=== PATIENT | male | born 1955 | race Caucasian/White ===

== ENCOUNTER → 2017-08-24 11:17 | Outpatient (CLI) | payer OTHER, MEDICAID, SELFPAY ==
[2017-08-24 12:06] LABS: Add Manual Diff / Slide Review NO; Basophils Percent Auto 0.5 % (0-2); Eosinophils Percent Auto 1.3 % (2-4); Hematocrit 46.5 % (41-53); Hemoglobin 15.9 g/dL (13.5-17.5); Lymphocytes Percent Auto 25.8 % (25-40); Mean Corpuscular HGB Conc 34.1 % (30-36); Mean Corpuscular Hemoglobin 32.8 PG (26-34); Neutrophils Absolute Auto 4300 /uL (3000-5900); Neutrophils Percent Auto 63.4 % (50-75); Platelet Count 260 X10^3/uL (150-400); Red Blood Cell Count 4.85 X10^6/uL (4.5-5.9); Red Cell Distribution Width 13.1 % (11.6-14.8); White Blood Cell Count 6.7 X10^3/uL (4.5-11.0)
[2017-08-24 12:11] LABS: Hemoglobin A1C% w Est Avg Glu 7.5 % (4.0-6.0)
[2017-08-24 12:20] LABS: Alanine Aminotransferase 26 IU/L (21-72); Albumin 4.5 g/dL (3.5-5.0); Albumin Globulin Ratio 1.4 (1.0-2.8); Alkaline Phosphatase 43 U/L (38-126); Aspartate Aminotransferase 20 IU/L (17-59); Bilirubin Total 0.7 mg/dL (0.2-1.3); Blood Urea Nitrogen 16 mg/dL (9-20); Carbon Dioxide 27 mmol/L (22-32); Chloride 102 mmol/L (98-107); Estimated Glomerular Filt Rate > 60.0 mL/min (>60); Globulin 3.3 g/dL (1.7-4.1); Glucose 143 mg/dL (80-110); HEMOLYSIS 18 (0-50); Sodium 142 mmol/L (137-145); Total Protein 7.8 g/dL (6.3-8.2)
[2017-08-24 12:21] LABS: Potassium 5.5 mmol/L (3.4-5.1)
[2017-08-24 13:51] LABS: Creatinine Urine Random 178.4 mg/dL
[2017-08-24 13:55] LABS: Microalbumi Creatinin Ratio Ur 20.1 ug/mg CR (<30); Microalbumin Urine Random 3.6 mg/dL (0-1.6)
== END ==
PROVIDERS: Family Provider Internal Medicine Cardiovascular Disease; PCP Internal Medicine; Visit Provider Internal Medicine Cardiovascular Disease
DX: E11.9 Type 2 diabetes mellitus without complications (principal); Z51.81 Encounter for therapeutic drug level monitoring; Z79.899 Other long term (current) drug therapy
CPT/HCPCS: 36415; 80053; 82043; 82570; 83036; 85025

== ENCOUNTER → 2018-04-21 10:51 | Outpatient (CLI) | payer MEDICARE, OTHER, SELFPAY ==
[2018-04-21 11:37] LABS: Blood Urea Nitrogen 14 mg/dL (9-20); Calcium 9.6 mg/dL (8.4-10.2); Carbon Dioxide 29 mmol/L (22-32); Chloride 99 mmol/L (98-107); Estimated Glomerular Filt Rate > 60.0 mL/min (>60); Glucose 315 mg/dL (80-110); HEMOLYSIS 16 (0-50); Potassium 5.3 mmol/L (3.4-5.1); Sodium 137 mmol/L (137-145)
== END ==
PROVIDERS: Family Provider Internal Medicine Cardiovascular Disease; PCP Internal Medicine; Visit Provider Internal Medicine Cardiovascular Disease
DX: Z51.81 Encounter for therapeutic drug level monitoring (principal); Z79.899 Other long term (current) drug therapy
CPT/HCPCS: 36415; 80048

== ENCOUNTER → 2018-09-22 14:45 | Outpatient (CLI) | payer MEDICARE, OTHER, SELFPAY ==
[2018-09-22 15:54] LABS: BUN Creatinine Ratio 18.2 (6-22); Blood Urea Nitrogen 20 mg/dL (9-20); Carbon Dioxide 25 mmol/L (22-32); Chloride 101 mmol/L (98-107); Estimated Glomerular Filt Rate > 60.0 mL/min (>60); Glucose 225 mg/dL (80-110); HEMOLYSIS < 15 (0-50); Potassium 4.8 mmol/L (3.4-5.1); Sodium 137 mmol/L (137-145)
== END ==
PROVIDERS: PCP Internal Medicine; Visit Provider Internal Medicine Cardiovascular Disease
DX: Z51.81 Encounter for therapeutic drug level monitoring (principal); Z79.899 Other long term (current) drug therapy
CPT/HCPCS: 36415; 80048

== ENCOUNTER → 2019-01-25 11:48 | Outpatient (CLI) | payer MEDICARE, OTHER, SELFPAY ==
[2019-01-25 12:57] LABS: BUN Creatinine Ratio 11.7 (6-22); Blood Urea Nitrogen 14 mg/dL (9-20); Calcium 10.2 mg/dL (8.4-10.2); Carbon Dioxide 28 mmol/L (22-32); Chloride 101 mmol/L (98-107); Estimated Glomerular Filt Rate > 60.0 mL/min (>60); Glucose 165 mg/dL (80-110); HEMOLYSIS < 15 (0-50); Potassium 5.2 mmol/L (3.4-5.1); Sodium 139 mmol/L (137-145)
== END ==
PROVIDERS: Family Provider Internal Medicine; PCP Internal Medicine; Visit Provider Internal Medicine Cardiovascular Disease
DX: Z51.81 Encounter for therapeutic drug level monitoring (principal); Z79.899 Other long term (current) drug therapy
CPT/HCPCS: 36415; 80048

== ENCOUNTER → 2019-07-19 13:55 | Outpatient (CLI) | payer MEDICARE, OTHER, SELFPAY ==
[2019-07-19 14:45] LABS: Hemoglobin A1C% w Est Avg Glu 9.2 % (4.0-6.0)
[2019-07-19 15:09] LABS: Alanine Aminotransferase 17 IU/L (<50); Albumin 4.4 g/dL (3.5-5.0); Albumin Globulin Ratio 1.4 (1.0-2.8); Alkaline Phosphatase 53 U/L (38-126); Aspartate Aminotransferase 19 IU/L (17-59); BUN Creatinine Ratio 13.4 (6-22); Bilirubin Total 0.8 mg/dL (0.2-1.3); Blood Urea Nitrogen 17 mg/dL (9-20); Carbon Dioxide 19 mmol/L (22-32); Chloride 103 mmol/L (98-107); Cholesterol 220 mg/dL (140-199); Estimated Glomerular Filt Rate 56.7 mL/min (>60); Globulin 3.2 g/dL (1.7-4.1); Glucose 214 mg/dL (80-110); HDL Cholesterol 41 mg/dL (40-60); HEMOLYSIS < 15 (0-50); LDL Cholesterol Calculated 148 mg/dL (<100); Potassium 4.4 mmol/L (3.4-5.1); Sodium 136 mmol/L (137-145); Total Protein 7.6 g/dL (6.3-8.2); Triglycerides 154 mg/dL (35-150)
[2019-07-19 15:38] LABS: Prostate Specific Antigen 1.59 ng/mL (0.10-4.00)
== END ==
PROVIDERS: Family Provider Internal Medicine; PCP Internal Medicine; Referring Provider Internal Medicine; Visit Provider Internal Medicine Cardiovascular Disease
DX: I48.91 Unspecified atrial fibrillation (principal); E11.9 Type 2 diabetes mellitus without complications; E78.5 Hyperlipidemia, unspecified; I42.9 Cardiomyopathy, unspecified; I48.0 Paroxysmal atrial fibrillation; R97.20 Elevated prostate specific antigen [PSA]
CPT/HCPCS: 36415; 80053; 80061; 83036; 84153

== ENCOUNTER → 2019-12-02 10:01 | Outpatient (CLI) | payer MEDICARE, OTHER, SELFPAY ==
[2019-12-02 10:37] LABS: BUN Creatinine Ratio 11.6 (6-22); Blood Urea Nitrogen 14 mg/dL (9-20); Calcium 9.5 mg/dL (8.4-10.2); Carbon Dioxide 23 mmol/L (22-32); Chloride 104 mmol/L (98-107); Glucose 162 mg/dL (80-110); HEMOLYSIS < 15 (0-50); Hemoglobin A1C% w Est Avg Glu 7.4 % (4.0-6.0); Potassium 4.2 mmol/L (3.4-5.1); Sodium 138 mmol/L (137-145)
== END ==
PROVIDERS: Family Provider Internal Medicine; PCP Internal Medicine; Referring Provider Internal Medicine; Visit Provider Internal Medicine
DX: E11.65 Type 2 diabetes mellitus with hyperglycemia (principal)
CPT/HCPCS: 36415; 80048; 83036

== ENCOUNTER 2020-03-19 00:10 | Emergency (ER) | payer MEDICARE, OTHER, SELFPAY ==
[2020-03-19] VITALS (19 sets, daily range): BP systolic 141–233; BP diastolic 65–121; PULSE 53–91; RESP 10–18; TEMP 36.9–38; O2SAT 91–100; BMI 28.5
--- NOTE | 2020-03-19 00:25 | ED.GENADULT ---
HPI - General Adult General Chief complaint: Abdominal Pain Stated complaint: nausea, pain in abdomen, diarrhea, Time Seen by Provider: 03/19/20 00:11 Source: patient Mode of arrival: Ambulatory Limitations: no limitations History of Present Illness HPI narrative: Patient is a 65-year-old male who arrives emergency department several hours after having a fairly sudden onset of abdominal pain nausea vomiting and diarrhea. He states that this started approximately 30 minutes after eating a cold hamburger that had been cooked previously. Denies any fevers but is having chills. Has generalized abdominal pain. States he generally feels very poorly. Also having some lightheadedness. No chest pain. No shortness of breath. Has not tried anything for symptoms prior to arrival. Related Data Home Medications Medication Instructions Recorded Confirmed dofetilide [Tikosyn] 500 mcg PO BID #0 10/26/15 12/02/19 diltiazem HCl 180 mg 180 mg PO DAILY cap 07/29/19 12/02/19 capsule,extended release 24 hr Previous Rx's Medication Instructions Recorded losartan 25 mg tablet 25 mg PO DAILY #30 tab 07/29/19 metformin 1,000 mg tablet 1,000 mg PO BIDCC #180 tab 07/29/19 sertraline 50 mg tablet 50 mg PO DAILY #90 tab 07/29/19 glipizide 10 mg tablet 10 mg PO BID #180 tab 08/03/19 ondansetron 4 mg PO Q6H PRN #10 tab 03/19/20 sulfamethoxazole-trimethoprim 1 tab PO BID 5 Days #10 tab 03/19/20 [Bactrim DS] Allergies Allergy/AdvReac Type Severity Reaction Status Date / Time No Known Drug Allergies Allergy Verified 12/02/19 11:19 Review of Systems Constitutional Constitutional: Reports chills, Denies fatigue, Denies fever(s), Denies headache(s), Reports lethargy and Reports malaise Eyes Eyes: Denies change in vision ENT Ears, Nose, Mouth, and Throat: Denies vertigo, Reports dizziness, Denies headache(s) and Denies sore throat Cardiovascular Cardiovascular: Denies chest pain and Denies dyspnea Respiratory Respiratory: Denies dyspnea Gastrointestinal Gastrointestinal: Reports abdominal pain, Reports diarrhea, Reports nausea and Reports vomiting Genitourinary Genitourinary: Denies dysuria Genitourinary: Denies dysuria Musculoskeletal Musculoskeletal: Denies arthralgias and Denies myalgias Integumentary/Breasts Skin/Breast: Denies lesions and Denies rash Neurologic Neurologic: Denies behavioral changes, Denies vertigo, Reports dizziness and Denies headache(s) Psychiatric Psychiatric: Denies behavioral changes Endocrine Endocrine: Denies fatigue Hematologic/Lymphatic Hematologic/Lymphatic: Denies easy bleeding and Denies easy bruising Allergic/Immunologic Allergic/Immunologic: Denies urticaria Patient History Medical History Cardiomyopathy (10/24/14) Elevated prostate specific antigen (PSA) (10/02/14) Hyperlipidemia (04/29/11) Paroxysmal atrial fibrillation (02/20/17) Type 2 diabetes mellitus with hyperglycemia Type 2 diabetes mellitus without complication (10/02/14) Type 2 diabetes mellitus without complication, without long-term current use of insulin (06/25/17) Social History marital status: number of children: 0 household members: none lives independently: Yes caregiver/support person: No housing: house pets and animals: Yes education level: other (Bachelors Degree) occupational status: other (Retired) current occupational exposures/hazards: No Previous occupational history: Various claudia/confucianism: X.Non-specified special claudia needs: No travel history: recent (Back and forth to [facility].) leisure activities: hunting and fishing Smoking Status: Never smoker Tobacco: How many years used: 0 quit status: quit date established (Never smoked.) second hand exposure: No alcohol intake: current (Social drinker, rarely ) substance use type: marijuana (Occasionally.) Smoking Status: Never smoker Exam Initial Vital Signs Initial Vital Signs: Vital Signs Temperature 98.5 F 03/19/20 00:13 Pulse Rate 53 L 03/19/20 00:13 Respiratory Rate 16 03/19/20 00:13 Blood Pressure 229/118 H 03/19/20 00:13 Pulse Oximetry 97 03/19/20 00:13 Const General: cooperative, in distress and ill appearing Limitations: mental status not altered HENMT Head: normal to inspection and normocephalic Chest Chest: No tenderness Resp Effort & Inspection: normal respiratory effort Auscultation: clear to auscultation bilaterally Cardio Rate: regular rate Rhythm: regular rhythm GI Inspection: non-distended Palpation: soft and tender (Diffusely tender) Skin Lesions: no lesions Rashes: no rashes Neuro General: patient alert, patient awake and patient oriented x3 Cognition: normal cognition Speech: speech normal Extrem General: capillary refill normal and No edema Psych Appearance: grossly normal and well kempt Scores GCS [place] coma scale eye opening: Spontaneous [place] coma scale verbal response: Orientated [place] coma scale motor response: Obey commands [place] coma scale total score: 15 Course Orders Ordered: ED Orders 03/19/20 00:15 EKG-12 Lead Stat 03/19/20 00:20 COVID19 Stat 03/19/20 00:26 Complete Blood Count AUTO DIFF Stat Comprehensive Metabolic Panel Stat Lactate (Lactic Acid) Stat Lipase Stat Procalcitonin Stat Troponin & CK Cardiac Panel Stat Type and Screen Stat 03/19/20 00:43 Blood Culture Stat 03/19/20 00:49 CT angio chest abdomen pelvis Stat 03/19/20 01:15 Urine Microscopic Stat Discontinued Medications Sodium Chloride (Normal Saline 0.9%) 1,000 mls @ 500 mls/hr IV BOLUS ONE Stop: 03/19/20 02:12 Last Infusion: 03/19/20 02:14 Dose: 0 mls/hr Documented by: Admin: 03/19/20 00:33 Dose: 500 mls/hr Documented by: HERMAN Sodium Chloride (Normal Saline 0.9%) 1,000 mls @ 1,000 mls/hr IV BOLUS ONE Stop: 03/19/20 03:07 Last Infusion: 03/19/20 04:13 Dose: 0 mls/hr Documented by: Admin: 03/19/20 02:13 Dose: 1,000 mls/hr Documented by: PATTI Ceftriaxone Sodium/Dextrose (Rocephin) 1 gm in 50 mls @ 100 mls/hr IV NOW ONE Stop: 03/19/20 03:06 Last Infusion: 03/19/20 04:06 Dose: 0 mls/hr Documented by: Admin: 03/19/20 02:50 Dose: 100 mls/hr Documented by: PATTI Losartan Potassium (Losartan 25 Mg Tablet) 25 mg PO NOW ONE Stop: 03/19/20 02:50 Last Admin: 03/19/20 03:49 Dose: 25 mg Documented by: HEAVEN Methocarbamol (Methocarbamol 500 Mg Tablet) 750 mg PO NOW ONE Stop: 03/19/20 01:40 Metoclopramide HCl (Metoclopramide 10 Mg/2 Ml Inj) 10 mg IV NOW ONE Stop: 03/19/20 02:22 Last Admin: 03/19/20 02:25 Dose: 10 mg Documented by: PATTI Ondansetron HCl (Ondansetron 4 Mg/2 Ml Inj) 4 mg IV NOW ONE Stop: 03/19/20 00:24 Last Admin: 03/19/20 00:33 Dose: 4 mg Documented by: HERMAN Ondansetron HCl (Ondansetron 4 Mg/2 Ml Inj) 4 mg IV NOW ONE Stop: 03/19/20 04:50 Last Admin: 03/19/20 04:57 Dose: 4 mg Documented by: Vital Signs Vital signs: Vital Signs - 8 hr 03/19/20 00:13 03/19/20 00:31 03/19/20 01:10 Temperature 98.5 F Pulse Rate 53 L 53 L 61 Respiratory Rate 16 14 16 Blood Pressure 229/118 H 196/87 H Pulse Oximetry 97 99 99 03/19/20 01:17 03/19/20 01:30 03/19/20 01:31 Temperature Pulse Rate 60 76 75 Respiratory Rate 14 10 L 11 L Blood Pressure 233/104 H 170/85 H Pulse Oximetry 98 94 95 03/19/20 02:00 03/19/20 02:01 03/19/20 02:30 Temperature Pulse Rate 65 68 61 Respiratory Rate 16 Blood Pressure 213/121 H Pulse Oximetry 99 100 99 03/19/20 02:36 03/19/20 02:37 03/19/20 02:56 Temperature 99.3 F 100.4 F H Pulse Rate 63 Respiratory Rate 12 Blood Pressure 221/104 H Pulse Oximetry 100 03/19/20 03:00 03/19/20 03:01 03/19/20 03:30 Temperature Pulse Rate 75 74 91 H Respiratory Rate 18 15 Blood Pressure 148/81 H 141/65 H Pulse Oximetry 91 92 91 03/19/20 04:00 03/19/20 04:30 03/19/20 04:31 Temperature Pulse Rate 82 66 68 Respiratory Rate Blood Pressure 151/87 H 196/86 H Pulse Oximetry 95 99 97 Medical Decision Making Medical Records Medical records reviewed: Yes I reviewed the patient's medical records. Lab Data Lab results reviewed: Yes I reviewed the patient's lab results. Result diagrams: 03/19/20 00:26 03/19/20 00:26 Labs: Lab Results 03/19/20 03/19/20 03/19/20 Range/Units 00:20 00:26 00:26 WBC 10.5 (4.5-11.0) X10^3/uL RBC 5.18 (4.5-5.9) X10^6/uL Hgb 16.3 (13.5-17.5) g/dL Hct 49.4 (41-53) % MCV 95.3 (80-100) fL MCH 31.4 (26-34) PG MCHC 33.0 (30-36) % RDW 13.8 (11.6-14.8) % Plt Count 322 (150-400) X10^3/uL Neut % (Auto) 82.0 H (50-75) % Lymph % (Auto) 11.1 L (25-40) % [place] % (Auto) 6.4 (3-14) % Eos % (Auto) 0.1 L (2-4) % Baso % (Auto) 0.4 (0-2) % Neut # (Auto) 8600 H (3377-1113) /uL Lymph # (Auto) 1200 (6288-6906) /uL [place] # (Auto) 700 (0-900) /uL Eos # (Auto) 0 (0-450) /uL Baso # (Auto) 0 (0-100) /uL Sodium 136 L (137-145) mmol/L Potassium 4.2 (3.4-5.1) mmol/L Chloride 101 (98-107) mmol/L Carbon Dioxide 22 (22-32) mmol/L BUN 12 (9-20) mg/dL Creatinine 1.20 (0.66-1.25) mg/dL Estimated GFR > 60.0 (>60) mL/min BUN/Creatinine Ratio 10.0 (6-22) Glucose 268 H (80-110) mg/dL Lactate (0.7-2.1) mmol/L Calcium 9.7 (8.4-10.2) mg/dL Total Bilirubin 0.7 (0.2-1.3) mg/dL AST 23 (17-59) IU/L ALT 42 (<50) IU/L Alkaline Phosphatase 67 (38-126) U/L Total Creatine Kinase 103 (55-170) U/L CK-MB (CK-2) 1.57 (<2.37) ng/mL CK-MB (CK-2) Rel Index 1.5 (1.5-5.0) % Troponin I < 0.012 (0.01-0.034) ng/mL Total Protein 8.5 H (6.3-8.2) g/dL Albumin 4.6 (3.5-5.0) g/dL Globulin 3.9 (1.7-4.1) g/dL Albumin/Globulin Ratio 1.2 (1.0-2.8) Lipase 43 (23-300) U/L Procalcitonin (<0.5) ng/mL Urine RBC (0-5/HPF) Urine WBC (0-5/HPF) Urine Bacteria (None) Ur Culture Indicated? SARS-CoV-2 (PCR) Negative (Negative) Blood Type Antibody Screen 03/19/20 03/19/20 03/19/20 Range/Units 00:26 00:26 00:26 WBC (4.5-11.0) X10^3/uL RBC (4.5-5.9) X10^6/uL Hgb (13.5-17.5) g/dL Hct (41-53) % MCV (80-100) fL MCH (26-34) PG MCHC (30-36) % RDW (11.6-14.8) % Plt Count (150-400) X10^3/uL Neut % (Auto) (50-75) % Lymph % (Auto) (25-40) % [place] % (Auto) (3-14) % Eos % (Auto) (2-4) % Baso % (Auto) (0-2) % Neut # (Auto) (0904-5368) /uL Lymph # (Auto) (0295-1772) /uL [place] # (Auto) (0-900) /uL Eos # (Auto) (0-450) /uL Baso # (Auto) (0-100) /uL Sodium (137-145) mmol/L Potassium (3.4-5.1) mmol/L Chloride (98-107) mmol/L Carbon Dioxide (22-32) mmol/L BUN (9-20) mg/dL Creatinine (0.66-1.25) mg/dL Estimated GFR (>60) mL/min BUN/Creatinine Ratio (6-22) Glucose (80-110) mg/dL Lactate 4.4 H* (0.7-2.1) mmol/L Calcium (8.4-10.2) mg/dL Total Bilirubin (0.2-1.3) mg/dL AST (17-59) IU/L ALT (<50) IU/L Alkaline Phosphatase (38-126) U/L Total Creatine Kinase (55-170) U/L CK-MB (CK-2) (<2.37) ng/mL CK-MB (CK-2) Rel Index (1.5-5.0) % Troponin I (0.01-0.034) ng/mL Total Protein (6.3-8.2) g/dL Albumin (3.5-5.0) g/dL Globulin (1.7-4.1) g/dL Albumin/Globulin Ratio (1.0-2.8) Lipase (23-300) U/L Procalcitonin < 0.05 (<0.5) ng/mL Urine RBC (0-5/HPF) Urine WBC (0-5/HPF) Urine Bacteria (None) Ur Culture Indicated? SARS-CoV-2 (PCR) (Negative) Blood Type A Negative Antibody Screen Negative 03/19/20 03/19/20 Range/Units 01:15 02:43 WBC (4.5-11.0) X10^3/uL RBC (4.5-5.9) X10^6/uL Hgb (13.5-17.5) g/dL Hct (41-53) % MCV (80-100) fL MCH (26-34) PG MCHC (30-36) % RDW (11.6-14.8) % Plt Count (150-400) X10^3/uL Neut % (Auto) (50-75) % Lymph % (Auto) (25-40) % [place] % (Auto) (3-14) % Eos % (Auto) (2-4) % Baso % (Auto) (0-2) % Neut # (Auto) (7256-9180) /uL Lymph # (Auto) (8225-3177) /uL [place] # (Auto) (0-900) /uL Eos # (Auto) (0-450) /uL Baso # (Auto) (0-100) /uL Sodium (137-145) mmol/L Potassium (3.4-5.1) mmol/L Chloride (98-107) mmol/L Carbon Dioxide (22-32) mmol/L BUN (9-20) mg/dL Creatinine (0.66-1.25) mg/dL Estimated GFR (>60) mL/min BUN/Creatinine Ratio (6-22) Glucose (80-110) mg/dL Lactate 2.6 H (0.7-2.1) mmol/L Calcium (8.4-10.2) mg/dL Total Bilirubin (0.2-1.3) mg/dL AST (17-59) IU/L ALT (<50) IU/L Alkaline Phosphatase (38-126) U/L Total Creatine Kinase (55-170) U/L CK-MB (CK-2) (<2.37) ng/mL CK-MB (CK-2) Rel Index (1.5-5.0) % Troponin I (0.01-0.034) ng/mL Total Protein (6.3-8.2) g/dL Albumin (3.5-5.0) g/dL Globulin (1.7-4.1) g/dL Albumin/Globulin Ratio (1.0-2.8) Lipase (23-300) U/L Procalcitonin (<0.5) ng/mL Urine RBC 30-100/hpf H (0-5/HPF) Urine WBC 0-1/hpf (0-5/HPF) Urine Bacteria None seen (None) Ur Culture Indicated? Cult not indicated SARS-CoV-2 (PCR) (Negative) Blood Type Antibody Screen Point of Care Testing Glucose POC 245 Urine Dip Bedside Urine Glucose 1000 mg/dl Bedside Urine Bilirubin - Negative Bedside Urine Ketone +++ 80 Urine Specific [place] 1.020 Bedside Urine Occult Blood +++ Bedside Urine pH 6.0 Bedside Urine Protein + 30 Bedside Urine Urobilinogen - Negative Bedside Urine Nitrite - Negative Bedside Urine Leukocytes - Negative Esterase Point of care testing: Point of Care Testing Glucose POC 245 Urine Dip Bedside Urine Glucose 1000 mg/dl Bedside Urine Bilirubin - Negative Bedside Urine Ketone +++ 80 Urine Specific [place] 1.020 Bedside Urine Occult Blood +++ Bedside Urine pH 6.0 Bedside Urine Protein + 30 Bedside Urine Urobilinogen - Negative Bedside Urine Nitrite - Negative Bedside Urine Leukocytes - Negative Esterase Imaging Data CT chest abdomen pelvis: Radiologist's Impression: CT angiogram chest/pulmonary arteries No acute process CT angiogram abdomen pelvis 2.5 mm right UVJ stone noted with ureteral distention ECG Data Attestation: I personally reviewed and interpreted this ECG as follows: Prior ECG tracings: not available for review Interpretation: Sinus bradycardia Ventricular rate of 56 QRS 1-4 milliseconds T-wave inversions in V4 V5 V6 MDM Narrative Medical decision making narrative: Upon arrival patient was ill-appearing. Was [place] in color. Was having a difficult time walking. He stated that the reason he came into the emergency department was because of the nausea and vomiting and abdominal pain in the diarrhea. He states that it started very shortly after eating a hamburger that was cold and had been cooked earlier. He was concerned that potentially he had food poisoning. He did not take his blood pressure medicine last evening because of the way that he was feeling. He had generalized abdominal pain. Given his presentation I had concern about potential aortic dissection versus aneurysm versus ischemic bowel. Labs showed no leukocytosis and normal procalcitonin but did have an elevated lactate. CT scan of the chest abdomen pelvis was only positive for a right-sided distal ureteral stone. There was no discussion of right-sided hydronephrosis on the CT scan however it did report a dilated ureter. Patient states that he has had kidney stones in the past in his symptoms of brought him in today were not consistent with his prior history of kidney stones. During his stay he also developed a fever to 100.4. Blood cultures were drawn. He was given a dose of antibiotics. Had multiple episodes of vomiting when trying to drink small amounts of fluid peer repeat lactate did show an improvement. I did have concern given his presentation that he potentially had an infected stone. There is also a high likelihood that his symptoms were a GI source given his dietary history. Had a discussion with Dr. Wiseman who was on-call for urology who agreed that given the small nature of the stone. The fact that was distal, the no mention of hydronephrosis, the lack of leukocytosis, and also the lack of any signs of infection on his urinalysis that the urinary stone cannot definitively be blamed for his presentation. He also agreed that it could potentially be the issue. He recommended admission for further observation in if his symptoms did not improve or if he develops worsening symptoms that the patient could potentially require stenting. Patient was unable to provide any stool sample for us to evaluate for potential infectious source of diarrhea. I discussed the case with Dr. Gallego who is on-call for the patient's primary doctor about bringing in for IV fluids, antibiotics, observation. Dr. Gallego accept the patient for admission however when I discussed the admission with the patient he stated that he did not want to be admitted to the hospital. He stated that he had a dog at home and no one to take care of the dog. He stated that he lives alone. He did have neighbors 1 of which came to the emergency department to pick him up however he stated that he did not feel like these neighbors could take care of his dog. I expressed my concerns about him going home. Expressed my concerns about his continued nausea. Expressed my concerns about his potential need for continued fluids, IV antibiotics, and even potential urologic procedures. I informed him that his chills could potentially mean a infection in his blood. Informed him that his symptoms could potentially get worse leading to a repeat visit to the hospital in even . Patient expressed understanding of this. He had a GCS of 15. Is alert oriented x3. In my opinion has capacity to make decisions. After this extensive discussion patient stated that he still would like to be discharged home. Prescriptions for antibiotics that would potentially cover a infectious diarrhea source and urine source or electronically transmitted to the pharmacy of his choice. Also transmitted a prescription for nausea control. Patient was encouraged to return to the emergency department if his symptoms worsened. He expressed understanding of this. Patient did sign against medical advice paperwork. Discharge Plan Departure Patient Disposition: Left Against Medical Advice Clinical Impression: Kidney stones, Nausea and vomiting, Diarrhea Instructions: Kidney Stones -- Adult, Nausea and Vomiting-Adult Activity Restrictions/Additional Instructions: Despite our conversations here in the emergency department about the concerns that you potentially have an infected kidney stone or food poisoning or both and despite the fact that your condition could potentially worsen and even cause you decided to leave against medical advice. It was my recommendation that you be admitted to the hospital as I felt that you needed IV fluids, IV antibiotics and observation to further determine whether or not your symptoms are caused by an infected kidney stone that could potentially require surgical intervention. Prescriptions for an antibiotic and nausea medicine were electronically transmitted to [facility]. Please pick them up and start taking them as directed. I recommend that you contact your primary provider for a follow-up. You can return to the emergency department at any point if you change your mind to continue your workup and if you start to get worsening symptoms, fevers, worsening pain, inability to tolerate oral intake despite the nausea medicine, I highly encouraged her to return to the emergency department. Prescriptions: New ondansetron 4 mg tablet,disintegrating 4 mg PO Q6H PRN (Reason: nausea and vomiting) Qty: 10 RF: 0 sulfamethoxazole-trimethoprim [Bactrim DS] 800-160 mg tablet 1 tab PO BID 5 Days Qty: 10 RF: 0 No Action dofetilide [Tikosyn] 500 MCG capsule 500 mcg PO BID Qty: 0 RF: 0 glipizide 10 mg tablet 10 mg PO BID Qty: 180 RF: 3 diltiazem HCl 180 mg capsule,extended release 24hr 180 mg PO DAILY RF: 0 sertraline 50 mg tablet 50 mg PO DAILY Qty: 90 RF: 3 metformin 1,000 mg tablet 1,000 mg PO BIDCC Qty: 180 RF: 3 losartan 25 mg tablet 25 mg PO DAILY Qty: 30 RF: 0 Referrals: Kayden Cook MD [Primary Care Provider] - Stand Alone Forms: Against Medical Advice
[2020-03-19] MEDS: SODIUM CHLORIDE 0.9% 1,000 ML 500 ML IV (00:33)
[2020-03-19] MEDS: ONDANSETRON 4 MG/2 ML INJ IV ×2 (00:33→04:57)
[2020-03-19 00:38] LABS: Add Manual Diff / Slide Review NO; Basophils Absolute Auto 0 /uL (0-100); Basophils Percent Auto 0.4 % (0-2); Eosinophils Absolute Auto 0 /uL (0-450); Eosinophils Percent Auto 0.1 % (2-4); Hematocrit 49.4 % (41-53); Hemoglobin 16.3 g/dL (13.5-17.5); Lymphocytes Absolute Auto 1200 /uL (1100-4500); Lymphocytes Percent Auto 11.1 % (25-40); Mean Corpuscular Hemoglobin 31.4 PG (26-34); Mean Corpuscular Volume 95.3 fL (80-100); Monocytes Absolute Auto 700 /uL (0-900); Monocytes Percent Auto 6.4 % (3-14); Neutrophils Absolute Auto 8600 /uL (1500-7000); Platelet Count 322 X10^3/uL (150-400); Red Blood Cell Count 5.18 X10^6/uL (4.5-5.9); Red Cell Distribution Width 13.8 % (11.6-14.8); White Blood Cell Count 10.5 X10^3/uL (4.5-11.0)
[2020-03-19 00:47] LABS: Lactate (Lactic Acid) 4.4 mmol/L (0.7-2.1)
[2020-03-19 00:48] LABS: Alanine Aminotransferase 42 IU/L (<50); Albumin 4.6 g/dL (3.5-5.0); Albumin Globulin Ratio 1.2 (1.0-2.8); Alkaline Phosphatase 67 U/L (38-126); Aspartate Aminotransferase 23 IU/L (17-59); Bilirubin Total 0.7 mg/dL (0.2-1.3); Blood Urea Nitrogen 12 mg/dL (9-20); Calcium 9.7 mg/dL (8.4-10.2); Carbon Dioxide 22 mmol/L (22-32); Chloride 101 mmol/L (98-107); Creatine Kinase 103 U/L (55-170); Estimated Glomerular Filt Rate > 60.0 mL/min (>60); Globulin 3.9 g/dL (1.7-4.1); Glucose 268 mg/dL (80-110); HEMOLYSIS < 15 (0-50); Lipase 43 U/L (23-300); Potassium 4.2 mmol/L (3.4-5.1); Sodium 136 mmol/L (137-145); Total Protein 8.5 g/dL (6.3-8.2)
--- NOTE | 2020-03-19 00:49 | DI.CT.S_ITS ---
PROCEDURE: CT ANGIO CHEST ABDOMEN PELVIS INDICATIONS: eval for aortic dissection, aneurysm, mesenteric ischemia TECHNIQUE: Precontrast 5 mm thick sections acquired from the lung apices to the iliac crests. After the administration of intravenous contrast, 2.5 mm thick sections again acquired from the lung apices to the iliac crests. Maximum intensity projection (MIP) oblique sagittal and coronal reformats were then acquired. For radiation dose reduction, the following was used: automated exposure control. COMPARISON: None. FINDINGS: Image quality: Excellent. AORTA: Intramural hematoma: Not applicable Maximum hematoma thickness: Not applicable Focal contrast enhancement: Intramural blood pool (< 2 mm neck or imperceptible communication with aortic lumen): Absent . Ulcer-like projection (broad communication with aortic lumen > 3 mm): Absent . Dissection: Absent [place] classification: Not applicable Maximum aortic diameter: 3.4 cm, ascending aorta. Periaortic hematoma: Absent . CHEST: Lungs and pleura: No acute airspace opacities. No pleural effusions or pneumothorax. Central and peripheral airways are patent and normal in caliber. Mediastinum: Heart size is normal. No pericardial effusion. No mediastinal or hilar adenopathy by size criteria. Central pulmonary arteries are normal in size. Esophagus is normal in caliber. No hiatal hernias. Bones and chest wall: No axillary adenopathy by size criteria. Thyroid gland appears normal where well seen . No suspicious bony lesions. No vertebral body compression fractures. ABDOMEN: Vasculature: Celiac trunk and mesenteric arteries are patent. Renal arteries are also patent. Solid organs: Liver is normal in size and enhancement. Gallbladder appears normal . Biliary system is non dilated. Pancreas enhances normally. Spleen is normal in size and enhancement. No adrenal nodules. Both kidneys are normal in size and enhancement, without hydronephrosis. Peritoneum and bowel: No free fluid or air. Bowel loops are normal in caliber and wall thickness. Nodes and vessels: No retroperitoneal or mesenteric adenopathy by size criteria. Inferior vena cava is normal in morphology. Miscellaneous: No ventral hernias. PELVIS: Genitourinary: Bladder wall thickness is normal. Miscellaneous: No inguinal hernias or adenopathy. No ventral hernias. Diverticulosis, mild. No acute diverticulitis. Bones: No suspicious bony lesions. No vertebral body compression fractures. IMPRESSION: No aneurysm or dissection seen, no embolus identified. Source of current symptoms is not found through the chest, abdomen or pelvis. Dictated by: Srini Lawson M.D. on 03/19/2020 at 11:01 Approved by: Srini Lawson M.D. on 03/19/2020 at 11:04
[2020-03-19 00:51] LABS: COVID19 -Nasal RAPID Negative (Negative)
[2020-03-19 01:00] LABS: Troponin I < 0.012 ng/mL (0.01-0.034)
[2020-03-19 01:03] LABS: CKMB % Relative Index 1.5 % (1.5-5.0); Creatine Kinase MB 1.57 ng/mL (<2.37)
[2020-03-19 01:04] LABS: Procalcitonin < 0.05 ng/mL (<0.5)
[2020-03-19 01:29] LABS: Bacteria Urine None Seen
[2020-03-19 01:50] LABS: Culture Indicated Urine Cult Not Indicated; RBC Urine 30-100/HPF (0-5/HPF); WBC Urine 0-1/HPF (0-5/HPF)
[2020-03-19] MEDS: SODIUM CHLORIDE 0.9% 1,000 ML 1000 ML IV (02:13)
[2020-03-19] MEDS: METOCLOPRAMIDE 10 MG/2 ML INJ IV (02:25)
[2020-03-19 02:32] LABS: Reflexed Lactate in 2 Hours Y
[2020-03-19] MEDS: CEFTRIAXONE 1 GM/50 ML FROZ.PIGGY IV (02:50)
[2020-03-19 03:00] LABS: Lactate 2HR (Lactic Acid Rflx) 2.6 mmol/L (0.7-2.1)
[2020-03-19] MEDS: LOSARTAN 25 MG TABLET PO (03:49)
== END 2020-03-19 06:00 | disposition left against medical advice (07) ==
PROVIDERS: Emergency Provider Emergency Medicine; Family Provider Internal Medicine; PCP Internal Medicine
DX: N20.0 Calculus of kidney (principal); R00.1 Bradycardia, unspecified; I10 Essential (primary) hypertension; R11.2 Nausea with vomiting, unspecified; R19.7 Diarrhea, unspecified; Z20.822 Contact with and (suspected) exposure to COVID-19
CPT/HCPCS: 36415; 71275; 74174; 80053; 81003; 81015; 82550; 82553; 82962; 83605; 83690; 84145; 84484; 85025; 86850; 86900; 86901; 87040; 87635; 93005; 96361; 96365; 96375; 96376; 99284; 99291; 99292; J2405; J2765; Q9967

== ENCOUNTER → 2020-04-17 11:33 | Outpatient (CLI) | payer MEDICARE, OTHER, SELFPAY ==
[2020-04-17 12:22] LABS: Hemoglobin A1C% w Est Avg Glu 7.4 % (4.0-6.0)
[2020-04-17 12:49] LABS: Alanine Aminotransferase 17 IU/L (<50); Albumin 4.2 g/dL (3.5-5.0); Albumin Globulin Ratio 1.4 (1.0-2.8); Alkaline Phosphatase 44 U/L (38-126); Aspartate Aminotransferase 20 IU/L (17-59); BUN Creatinine Ratio 12.7 (6-22); Bilirubin Total 0.7 mg/dL (0.2-1.3); Blood Urea Nitrogen 13 mg/dL (9-20); Calcium 9.8 mg/dL (8.4-10.2); Carbon Dioxide 25 mmol/L (22-32); Chloride 103 mmol/L (98-107); Cholesterol 238 mg/dL (140-199); Estimated Glomerular Filt Rate > 60.0 mL/min (>60); Glucose 137 mg/dL (80-110); HDL Cholesterol 47 mg/dL (40-60); HEMOLYSIS < 15 (0-50); LDL Cholesterol Calculated 159 mg/dL (<100); Potassium 4.3 mmol/L (3.4-5.1); Sodium 135 mmol/L (137-145); Total Protein 7.2 g/dL (6.3-8.2); Triglycerides 162 mg/dL (35-150)
== END ==
PROVIDERS: Family Provider Internal Medicine; PCP Internal Medicine; Referring Provider Internal Medicine Cardiovascular Disease; Visit Provider Internal Medicine Cardiovascular Disease
DX: Z79.899 Other long term (current) drug therapy (principal); E11.65 Type 2 diabetes mellitus with hyperglycemia; Z51.81 Encounter for therapeutic drug level monitoring; E78.5 Hyperlipidemia, unspecified; I48.0 Paroxysmal atrial fibrillation
CPT/HCPCS: 36415; 80053; 80061; 83036

== ENCOUNTER → 2020-07-20 10:07 | Outpatient (CLI) | payer MEDICARE, OTHER, SELFPAY ==
[2020-07-20 11:07] LABS: BUN Creatinine Ratio 18.2 (6-22); Blood Urea Nitrogen 16 mg/dL (9-20); Calcium 9.9 mg/dL (8.4-10.2); Carbon Dioxide 25 mmol/L (22-32); Chloride 104 mmol/L (98-107); Estimated Glomerular Filt Rate > 60.0 mL/min (>60); Glucose 173 mg/dL (80-110); HEMOLYSIS < 15 (0-50); Potassium 4.4 mmol/L (3.4-5.1); Sodium 138 mmol/L (137-145)
== END ==
PROVIDERS: Family Provider Internal Medicine; PCP Internal Medicine; Referring Provider Internal Medicine Cardiovascular Disease; Visit Provider Internal Medicine Cardiovascular Disease
DX: Z51.81 Encounter for therapeutic drug level monitoring (principal); Z79.899 Other long term (current) drug therapy
CPT/HCPCS: 36415; 80048

== ENCOUNTER → 2020-10-26 13:19 | Outpatient (CLI) | payer MEDICARE, OTHER, SELFPAY ==
[2020-10-26 14:13] LABS: Hemoglobin A1C% w Est Avg Glu 8.6 % (4.0-6.0)
[2020-10-26 18:02] LABS: Alanine Aminotransferase 24 IU/L (<50); Albumin 4.2 g/dL (3.5-5.0); Albumin Globulin Ratio 1.3 (1.0-2.8); Alkaline Phosphatase 47 U/L (38-126); Aspartate Aminotransferase 27 IU/L (17-59); BUN Creatinine Ratio 15.2 (6-22); Blood Urea Nitrogen 15 mg/dL (9-20); Calcium 9.7 mg/dL (8.4-10.2); Carbon Dioxide 22 mmol/L (22-32); Chloride 105 mmol/L (98-107); Cholesterol 137 mg/dL (140-199); Estimated Glomerular Filt Rate > 60.0 mL/min (>60); Globulin 3.2 g/dL (1.7-4.1); Glucose 172 mg/dL (80-110); HDL Cholesterol 44 mg/dL (40-60); HEMOLYSIS < 15 (0-50); LDL Cholesterol Calculated 72 mg/dL (<100); Potassium 4.1 mmol/L (3.4-5.1); Sodium 138 mmol/L (137-145); Total Protein 7.4 g/dL (6.3-8.2); Triglycerides 105 mg/dL (35-150)
== END ==
PROVIDERS: Family Provider Internal Medicine; PCP Internal Medicine; Referring Provider Nurse Practitioner Pediatrics; Visit Provider Nurse Practitioner Pediatrics
DX: Z51.81 Encounter for therapeutic drug level monitoring (principal); Z79.899 Other long term (current) drug therapy; E11.65 Type 2 diabetes mellitus with hyperglycemia; E78.5 Hyperlipidemia, unspecified
CPT/HCPCS: 36415; 80053; 80061; 83036

== ENCOUNTER → 2020-11-13 11:31 | Outpatient (CLI) | payer MEDICARE, OTHER, SELFPAY ==
--- NOTE | 2020-11-13 11:33 | DI.MRI.S_ITS ---
PROCEDURE: MR HEAD/BRAIN WO CON INDICATIONS: Vertigo TECHNIQUE: Non-contrast axial T1 spin echo, axial T2 fast spin echo, sagittal and axial FLAIR, coronal T2 fast spin echo, axial gradient echo, axial diffusion and ADC through the brain. COMPARISON: None. FINDINGS: Image quality: Diagnostic, with note made of motion artifact. CSF spaces: Ventricles appear symmetric in size and shape. Basal cisterns are patent. No extra-axial fluid collections. Brain: No intracranial bleeds or mass effects. There is cerebral volume loss for age. There are periventricular and deep white matter chronic small vessel ischemic changes. Brainstem appears normal. Diffusion-weighted images show no acute ischemic insults. No chronic ischemic insults. Normal intravascular flow voids are present. In this patient with this given history, scrutiny is given to cerebellopontine angle cisterns and to the internal auditory canals. To the limits of this standard protocol study, no masses can be seen within these regions. Skull and face: Calvarial bone marrow is normal in signal. Orbits are normal. Sinuses: Sinuses and mastoids are clear. IMPRESSION: No imaging explanation is found for this patient's presenting symptoms. Note is made of age-appropriate brain parenchymal volume loss and chronic small vessel ischemic changes. Dictated by: Spencer Henderson M.D. on 11/13/2020 at 11:49 Approved by: Spencer Henderson M.D. on 11/13/2020 at 11:50
== END ==
PROVIDERS: Family Provider Internal Medicine; PCP Internal Medicine; Referring Provider Internal Medicine; Visit Provider Internal Medicine
DX: R42 Dizziness and giddiness (principal); E11.65 Type 2 diabetes mellitus with hyperglycemia; E78.5 Hyperlipidemia, unspecified
CPT/HCPCS: 70551

== ENCOUNTER → 2021-04-02 09:29 | Outpatient (CLI) | payer MEDICARE, OTHER, SELFPAY ==
[2021-04-02 10:44] LABS: Hemoglobin A1C% w Est Avg Glu 10.6 % (4.0-6.0)
[2021-04-02 11:18] LABS: BUN Creatinine Ratio 14.7 (6-22); Blood Urea Nitrogen 14 mg/dL (9-20); Calcium 9.7 mg/dL (8.4-10.2); Carbon Dioxide 28 mmol/L (22-32); Chloride 101 mmol/L (98-107); Estimated Glomerular Filt Rate > 60.0 mL/min (>60); Glucose 294 mg/dL (80-110); HEMOLYSIS < 15 (0-50); Sodium 135 mmol/L (137-145)
[2021-04-02 11:43] LABS: TSH w/ Reflex to FT4 1.58 uIU/mL (0.47-4.68)
== END ==
PROVIDERS: Family Provider Internal Medicine; PCP Internal Medicine; Referring Provider Internal Medicine; Visit Provider Internal Medicine
DX: E11.65 Type 2 diabetes mellitus with hyperglycemia (principal); R53.83 Other fatigue; E78.2 Mixed hyperlipidemia
CPT/HCPCS: 36415; 80048; 83036; 84443

== ENCOUNTER → 2021-05-31 13:07 | Outpatient (CLI) | payer MEDICARE, OTHER, SELFPAY ==
[2021-05-31 14:05] LABS: BUN Creatinine Ratio 13.7 (6-22); Blood Urea Nitrogen 13 mg/dL (9-20); Calcium 9.7 mg/dL (8.4-10.2); Carbon Dioxide 27 mmol/L (22-32); Chloride 102 mmol/L (98-107); Estimated Glomerular Filt Rate > 60.0 mL/min (>60); Glucose 216 mg/dL (80-110); HEMOLYSIS < 15 (0-50); Potassium 4.1 mmol/L (3.4-5.1); Sodium 138 mmol/L (137-145)
== END ==
PROVIDERS: Family Provider Internal Medicine; PCP Internal Medicine; Referring Provider Internal Medicine Cardiovascular Disease; Visit Provider Internal Medicine Cardiovascular Disease
DX: Z51.81 Encounter for therapeutic drug level monitoring (principal); Z79.899 Other long term (current) drug therapy
CPT/HCPCS: 36415; 80048

== ENCOUNTER → 2022-12-09 16:06 | Outpatient (CLI) | payer MEDICARE, OTHER, SELFPAY ==
[2022-12-09 17:58] LABS: Alanine Aminotransferase 19 IU/L (<50); Albumin Globulin Ratio 1.4 (1.0-2.8); Alkaline Phosphatase 45 U/L (38-126); Aspartate Aminotransferase 18 IU/L (17-59); BUN Creatinine Ratio 13.5 (6-22); Bilirubin Total 1.1 mg/dL (0.2-1.3); Blood Urea Nitrogen 13 mg/dL (9-20); Calcium 9.6 mg/dL (8.4-10.2); Carbon Dioxide 22 mmol/L (22-32); Chloride 100 mmol/L (98-107); Cholesterol 125 mg/dL (140-199); Estimated Glomerular Filt Rate > 60 mL/min (>60); Globulin 2.8 g/dL (1.7-4.1); Glucose 213 mg/dL (80-110); HDL Cholesterol 41 mg/dL (40-60); HEMOLYSIS < 15 (0-50); LDL Cholesterol Calculated 65 mg/dL (<100); Potassium 4.5 mmol/L (3.4-5.1); Sodium 134 mmol/L (137-145); Total Protein 6.8 g/dL (6.3-8.2); Triglycerides 94 mg/dL (35-150)
[2022-12-09 19:22] LABS: Creatinine Urine Random 265.8 mg/dL
[2022-12-09 20:06] LABS: Microalbumi Creatinin Ratio Ur 165.1 ug/mg CR (<30); Microalbumin Urine Random 43.9 mg/dL (0-1.6)
== END ==
PROVIDERS: Family Provider Internal Medicine; PCP Internal Medicine; Referring Provider Internal Medicine; Visit Provider Internal Medicine
DX: E11.65 Type 2 diabetes mellitus with hyperglycemia (principal); E78.5 Hyperlipidemia, unspecified; R97.20 Elevated prostate specific antigen [PSA]; I48.0 Paroxysmal atrial fibrillation
CPT/HCPCS: 36415; 80053; 80061; 82043; 82570; 83036; 84153

== ENCOUNTER 2022-12-25 16:24 | Outpatient (RCR) | payer MEDICARE, OTHER, SELFPAY ==
--- NOTE | 2022-12-25 18:01 | PT.OIE ---
Current Diagnoses Unspecified disorder of vestibular function, right ear (12/25/22) Dizziness and giddiness (12/25/22) Past Medical History (Last Reviewed 03/19/20 @ 04:51 by Vic Ramos DO) Cardiomyopathy (10/24/14) Elevated prostate specific antigen (PSA) (10/02/14) Hyperlipidemia (04/29/11) Paroxysmal atrial fibrillation (02/20/17) Type 2 diabetes mellitus with hyperglycemia Type 2 diabetes mellitus without complication (10/02/14) Type 2 diabetes mellitus without complication, without long-term current use of insulin (06/25/17) Visit Care Team Role Provider Type Kayden Cook MD Family Provider Physician Primary Care Provider Specialty: Internal Medicine Address: [address] [place] [address], [address], [address] Email: [email or web address] Paulo Altamirano MD Attending Provider Physician Referring Provider Specialty: Internal Medicine Address: [address] [place] [address], [address] Email: [email or web address] Physical Therapy Initial Evaluation PT-OP-A Visit Information Start: 12/25/22 17:33 Freq: Status: Active Protocol: Document 12/25/22 16:30 DCW (Rec: 12/25/22 17:43 DCW [id number]) Out-Patient Physical Therapy Visit Information Visit Information Visit Type Initial Evaluation Visit Start Time 16:30 Visit Stop Time 17:30 Total Visit Minutes 60 Visit Number 1 Number of NUCLEAR MONITORING TECHNICIAN Visits 0 Evaluation Information Evaluation Date 12/25/22 PT-OP-B Current Condition Start: 12/25/22 17:33 Freq: Status: Active Protocol: Document 12/25/22 16:30 DCW (Rec: 12/25/22 17:43 DCW [id number]) Current Condition History of Current Condition Onset Date Five year history Current Complaints Vague sense of motion/vertigo when sitting/standing History of Current Condition Pt is a 67 year old male presenting with a five year history of a constant sense of motion and vertigo when upright in sitting or standing . Worse with movement, but still always present. Minimal complaints of any other symptoms, although does demonstrate a fairly frequent upper extremity tremor that he notes has just started within the past few months. Notes he saw an ENT, and his hearing is fine, and had a brain MRI ~ 2 years ago, which was unremarkable. Admits he is very frustrated, and it is greatly impacting his life. Has not been able to get up on his step stool to change batteries in smoke detectors or even spend time cleaning his house because he is some uncomfortable up moving around . Prior Treatments and Tests Brain MRI: IMPRESSION: No imaging explanation is found for this patient's presenting symptoms. Note is made of age- appropriate brain parenchymal volume loss and chronic small vessel ischemic changes. per Spencer Henderson M.D. on 11/13 Treatment Goals Patient/Caregiver Goals Decrease/eliminate unsteadiness PT-OP-C Subjective Start: 12/25/22 17:33 Freq: Status: Active Protocol: Document 12/25/22 16:30 DCW (Rec: 12/25/22 17:43 DCW [id number]) OP-PT Subjective Patient Comments Patient Comments This is really impacting my entire life. Patient Questionnaires ABC- Activity Specific Balance Confidence Scale ABC Score 21.87% Dizziness Handicap Inventory DHI Score 64% OP-PT Pain Assessment Pain Assessment Grid Paper Pain Assessment Grid Completed Yes: None PT-OP-O Vestibular Start: 12/25/22 17:33 Freq: Status: Active Protocol: Document 12/25/22 16:30 DCW (Rec: 12/25/22 17:43 DCW [id number]) Vestibular Assessment Auditory Tests Denise Test Within normal limits Rinne Test Negative Air Conduction Results Equal Visual Testing Smooth Pursuits Horizontal WNL Smooth Pursuits Vertical WNL Saccades Horizontal WNL Saccades Vertical WNL Heave Test Positive Right Thrust Head Positive Right Convergence Test WNL DVA (Line Degradation) 6 Vestibular Function Tests Fukuda Test WNL CTSIB Position 1 Minimal Sway CTSIB Position 2 Moderate Sway CTSIB Position 3 Minimal Sway CTSIB Position 4 Minimal Sway CTSIB Position 5 Fall Reaction CTSIB Position 6 Fall Reaction PT-OP-Q Treatments Start: 12/25/22 17:33 Freq: Status: Active Protocol: Document 12/25/22 16:30 DCW (Rec: 12/25/22 17:45 DCW [id number]) Neuro Re-Education Treatment Vestibular Rehabilitation Corrective Saccades Details Eyes, then head Distance From Target Arm's length Speed As tolerated Position Seated X2 Viewing Details Target and head moving in opposite directions Distance From Target Arm's length Speed As tolerated Position Seated X1 Viewing Details Static target with head turns Distance From Target Arm's length Speed As tolerated Position Seated VOR Retraining Details Head and target moving together Distance From Target Arm's length Speed As tolerated Position Seated PT-OP-T Assessment and Plan Start: 12/25/22 17:33 Freq: Status: Active Protocol: Document 12/25/22 16:30 DCW (Rec: 12/25/22 18:01 DCW [id number]) Physical Therapy Assessment Rehab Potential Rehabilitation Potential Good Evaluation Complexity Number of Personal Factors/Comorbidities 3 or More Number of Body Systems Impaired 4 or More Clinical Presentation at Evaluation Unstable Impairments Impairments Activity Tolerance,Balance, Functional Activities, Functional Mobility,Vestibular Goals Two Impairment Pt ABC score of 21.87% Mcc Goal (LTG) Pt to demonstrate improved subjective symptoms by improving ABC score to >50% LTG Duration 02/24/23 One Impairment Six line degradation during DVA testing Mcc Goal (LTG) Pt to demonstrate improved habituation of vestibular function by scoring at most a 4 line degradation LTG Duration 02/24/23 Assessment Summary Assessment Pt presents with a few vague vestibular dysfunctions, but no real straight-forward diagnosis. Pt does exhibit mild right-sided vestibular hypofunction, shown by positive right thrust and heave tests, as well as a six line degradation during DVA testing. All other testing largely unremarkable. Significant subjective complaints with vertigo/ imbalance when standing or sitting upright but feeling better supine could be suggestive of Persistent Postural-Perceptual Dizziness (3PD), unfortunately there is no actual test to rule in or out 3PD, and is more a diagnosis of exclusion. Both 3PD and vestibular hypofunction largely respond fairly well to habituation exercises and vestibular rehabilitation. HEP provided, pt admitted that it did increase his symptoms and he felt worse following treatment , but willing to continue to work on it at home. Physical Therapy Plan Frequency and Duration Frequency of Treatment 1-2x/week Plan of Care Start Date 12/25/22 Plan of Care End Date 02/24/23 Therapeutic Interventions Therapeutic Interventions Balance Training,Canalithic Repositioning,Home Exercise Program,Neuromuscular Re- education,Patient/Caregiver Education,Self-Care/Home Management,Soft Tissue Mobilization,Therapeutic Activities,Therapeutic Exercises,Vestibular Rehabilitation Next Visit Focus/Plan Next Note Type Treatment Note Next Visit Plan Vestibular rehabilitation, Habituation/Adaptation exercises
--- NOTE | 2022-12-25 18:03 | PT.OPPOC ---
Physical, Occupational & Speech Therapy At [facility] Current Diagnoses Unspecified disorder of vestibular function, right ear (12/25/22) Dizziness and giddiness (12/25/22) Visit Care Team Role Provider Type Kayden Cook MD Family Provider Physician Primary Care Provider Specialty: Internal Medicine Address: [address] [place] [address], [facility] [address], [place], [address] Email: [email or web address] Paulo Altamirano MD Attending Provider Physician Referring Provider Specialty: Internal Medicine Address: [address] [place] [address], [address] Email: [email or web address] Plan Of Care PT-OP-T Assessment and Plan Start: 12/25/22 17:33 Freq: Status: Active Protocol: Document 12/25/22 16:30 DCW (Rec: 12/25/22 18:01 DCW [id number]) Physical Therapy Assessment Rehab Potential Rehabilitation Potential Good Evaluation Complexity Number of Personal Factors/Comorbidities 3 or More Number of Body Systems Impaired 4 or More Clinical Presentation at Evaluation Unstable Impairments Impairments Activity Tolerance,Balance, Functional Activities, Functional Mobility,Vestibular Goals Two Impairment Pt ABC score of 21.87% Glass Tube Bender Goal (LTG) Pt to demonstrate improved subjective symptoms by improving ABC score to >50% LTG Duration 02/24/23 One Impairment Six line degradation during DVA testing Half-Way Goal (LTG) Pt to demonstrate improved habituation of vestibular function by scoring at most a 4 line degradation LTG Duration 02/24/23 Assessment Summary Assessment Pt presents with a few vague vestibular dysfunctions, but no real straight-forward diagnosis. Pt does exhibit mild right-sided vestibular hypofunction, shown by positive right thrust and heave tests, as well as a six line degradation during DVA testing. All other testing largely unremarkable. Significant subjective complaints with vertigo/ imbalance when standing or sitting upright but feeling better supine could be suggestive of Persistent Postural-Perceptual Dizziness (3PD), unfortunately there is no actual test to rule in or out 3PD, and is more a diagnosis of exclusion. Both 3PD and vestibular hypofunction largely respond fairly well to habituation exercises and vestibular rehabilitation. HEP provided, pt admitted that it did increase his symptoms and he felt worse following treatment , but willing to continue to work on it at home. Physical Therapy Plan Frequency and Duration Frequency of Treatment 1-2x/week Plan of Care Start Date 12/25/22 Plan of Care End Date 02/24/23 Therapeutic Interventions Therapeutic Interventions Balance Training,Canalithic Repositioning,Home Exercise Program,Neuromuscular Re- education,Patient/Caregiver Education,Self-Care/Home Management,Soft Tissue Mobilization,Therapeutic Activities,Therapeutic Exercises,Vestibular Rehabilitation Next Visit Focus/Plan Next Note Type Treatment Note Next Visit Plan Vestibular rehabilitation, Habituation/Adaptation exercises Plan of Care Dates Plan of Care Start Date 12/25/22 Plan of Care End Date 02/24/23 Electronically Signed by: Luc Chen, PT 12/25/22 6841 If you are in agreement with this Plan of Care, please return a signed and dated copy. I have reviewed this Plan of Care and certify that the skilled therapy services above are required to meet the patient?s needs. Physician Signature Date Printed Name and Credentials Clinical Instructor Signature Printed Name and Credentials
--- NOTE | 2023-04-20 16:46 | PT.OPDS ---
Current Diagnoses Unspecified disorder of vestibular function, right ear (12/25/22) Dizziness and giddiness (12/25/22) Visit Care Team Role Provider Type Kayden Cook MD Family Provider Physician Primary Care Provider Specialty: Internal Medicine Address: [address] [place] [address], [address], [address] Email: [email or web address] Paulo Altamirano MD Attending Provider Physician Referring Provider Specialty: Internal Medicine Address: [address] [place] [address], [address] Email: [email or web address] Visit Number Visit Number 1 Discharge Summary PT-OP-B Current Condition Start: 12/25/22 17:33 Freq: Status: Active Protocol: Document 12/25/22 16:30 DCW (Rec: 12/25/22 17:43 DCW [id number]) Current Condition History of Current Condition Onset Date Five year history Current Complaints Vague sense of motion/vertigo when sitting/standing History of Current Condition Pt is a 67 year old male presenting with a five year history of a constant sense of motion and vertigo when upright in sitting or standing . Worse with movement, but still always present. Minimal complaints of any other symptoms, although does demonstrate a fairly frequent upper extremity tremor that he notes has just started within the past few months. Notes he saw an ENT, and his hearing is fine, and had a brain MRI ~ 2 years ago, which was unremarkable. Admits he is very frustrated, and it is greatly impacting his life. Has not been able to get up on his step stool to change batteries in smoke detectors or even spend time cleaning his house because he is some uncomfortable up moving around . Prior Treatments and Tests Brain MRI: IMPRESSION: No imaging explanation is found for this patient's presenting symptoms. Note is made of age- appropriate brain parenchymal volume loss and chronic small vessel ischemic changes. per Spencer Henderson M.D. on 11/13 Treatment Goals Patient/Caregiver Goals Decrease/eliminate unsteadiness PT-OP-C Subjective Start: 12/25/22 17:33 Freq: Status: Active Protocol: Document 12/25/22 16:30 DCW (Rec: 12/25/22 17:43 DC [id number]) OP-PT Subjective Patient Comments Patient Comments This is really impacting my entire life. Patient Questionnaires ABC- Activity Specific Balance Confidence Scale ABC Score 21.87% Dizziness Handicap Inventory DHI Score 64% OP-PT Pain Assessment Pain Assessment Grid Paper Pain Assessment Grid Completed Yes: None PT-OP-O Vestibular Start: 12/25/22 17:33 Freq: Status: Active Protocol: Document 12/25/22 16:30 DCW (Rec: 12/25/22 17:43 DC [id number]) Vestibular Assessment Auditory Tests Denise Test Within normal limits Rinne Test Negative Air Conduction Results Equal Visual Testing Smooth Pursuits Horizontal WNL Smooth Pursuits Vertical WNL Saccades Horizontal WNL Saccades Vertical WNL Heave Test Positive Right Thrust Head Positive Right Convergence Test WNL DVA (Line Degradation) 6 Vestibular Function Tests Fukuda Test WNL CTSIB Position 1 Minimal Sway CTSIB Position 2 Moderate Sway CTSIB Position 3 Minimal Sway CTSIB Position 4 Minimal Sway CTSIB Position 5 Fall Reaction CTSIB Position 6 Fall Reaction PT-OP-T Assessment and Plan Start: 12/25/22 17:33 Freq: Status: Active Protocol: Document 04/20/23 16:46 DCW (Rec: 04/20/23 16:46 DCW [id number]) Physical Therapy Assessment Assessment Summary Assessment Pt canceled follow-up visits following initial evaluation, has now not been seen in more than three months. Pt will be discharged from skilled therapy at this time, will require a new referral in order to return in the future. Physical Therapy Plan Discharge Physical Therapy Discharge Reasons No Longer Attending PT
== END 2023-04-22 10:17 | disposition home or self-care (01) ==
LOC: PHYS 16:24
PROVIDERS: Family Provider Internal Medicine; PCP Internal Medicine; Referring Provider Internal Medicine; Visit Provider Internal Medicine
DX: H81.91 Unspecified disorder of vestibular function, right ear (principal); R42 Dizziness and giddiness
CPT/HCPCS: 97112; 97163

== ENCOUNTER → 2023-03-02 11:47 | Outpatient (CLI) | payer MEDICARE, OTHER, SELFPAY ==
[2023-03-02 15:06] LABS: Hemoglobin A1C% w Est Avg Glu 10.5 % (4.0-6.0)
[2023-03-02 15:08] LABS: Blood Urea Nitrogen 17 mg/dL (9-20); Calcium 10.6 mg/dL (8.4-10.2); Carbon Dioxide 24 mmol/L (22-32); Chloride 98 mmol/L (98-107); Estimated Glomerular Filt Rate > 60 mL/min (>60); Glucose 262 mg/dL (80-110); HEMOLYSIS < 15 (0-50); Potassium 4.4 mmol/L (3.4-5.1); Sodium 134 mmol/L (137-145)
== END ==
PROVIDERS: Family Provider Internal Medicine; PCP Internal Medicine; Referring Provider Internal Medicine; Visit Provider Internal Medicine
DX: E11.9 Type 2 diabetes mellitus without complications (principal); E11.65 Type 2 diabetes mellitus with hyperglycemia
CPT/HCPCS: 36415; 80048; 83036

== ENCOUNTER → 2023-03-20 12:48 | Outpatient (CLI) | payer MEDICARE, OTHER, SELFPAY ==
[2023-03-20 14:10] LABS: BUN Creatinine Ratio 17.5 (6-22); Blood Urea Nitrogen 21 mg/dL (9-20); Calcium 10.3 mg/dL (8.4-10.2); Carbon Dioxide 24 mmol/L (22-32); Chloride 99 mmol/L (98-107); Estimated Glomerular Filt Rate > 60 mL/min (>60); Glucose 269 mg/dL (80-110); HEMOLYSIS < 15 (0-50); Magnesium 1.9 mg/dL (1.6-2.3); Potassium 4.8 mmol/L (3.4-5.1); Sodium 135 mmol/L (137-145)
== END ==
PROVIDERS: Family Provider Internal Medicine; PCP Internal Medicine; Referring Provider Internal Medicine Cardiovascular Disease; Visit Provider Internal Medicine Cardiovascular Disease
DX: Z51.81 Encounter for therapeutic drug level monitoring (principal); Z79.899 Other long term (current) drug therapy; I48.0 Paroxysmal atrial fibrillation
CPT/HCPCS: 36415; 80048; 83735

== ENCOUNTER → 2023-11-13 13:49 | Outpatient (CLI) | payer MEDICARE, OTHER, SELFPAY ==
--- NOTE | 2023-11-13 13:55 | DI.RAD.S_ITS ---
PROCEDURE: XR CHEST 2V INDICATIONS: CHEST PRESSURE TECHNIQUE: 2 views of the chest were acquired. COMPARISON: None. FINDINGS: Surgical changes and devices: None. Lungs and pleura: Lungs are clear. No pleural effusions or pneumothorax. Mediastinum: Mediastinal contours are normal. Heart size is normal. Bones and chest wall: No suspicious bony abnormalities. Soft tissues appear unremarkable. IMPRESSION: No acute cardiopulmonary abnormality is seen. Dictated by: Srini Lawson M.D. on 11/13/2023 at 16:41 Approved by: Srini Lawson M.D. on 11/13/2023 at 16:41
[2023-11-13 15:31] LABS: BUN Creatinine Ratio 17.4 (6-22); Blood Urea Nitrogen 16 mg/dL (9-20); Calcium 9.7 mg/dL (8.4-10.2); Carbon Dioxide 22 mmol/L (22-32); Chloride 103 mmol/L (98-107); Estimated Glomerular Filt Rate > 60 mL/min (>60); Glucose 124 mg/dL (80-110); HEMOLYSIS < 15 (0-50); Potassium 4.4 mmol/L (3.4-5.1); Sodium 136 mmol/L (137-145)
== END ==
PROVIDERS: Family Provider Internal Medicine; PCP Internal Medicine; Referring Provider Internal Medicine Cardiovascular Disease; Visit Provider Internal Medicine Cardiovascular Disease
DX: I42.9 Cardiomyopathy, unspecified (principal); I48.11 Longstanding persistent atrial fibrillation
CPT/HCPCS: 36415; 71046; 80048

== ENCOUNTER 2024-05-14 07:27 | Emergency (ER) | payer MEDICARE, OTHER, SELFPAY ==
[2024-05-14] VITALS (43 sets, daily range): BP systolic 101–141; BP diastolic 62–87; PULSE 96–114; RESP 12–25; TEMP 36.6; O2SAT 94–100; BMI 25.0
--- NOTE | 2024-05-14 07:35 | EKG_ITS ---
[address] [address] Test Date: 2024-05-14 Pat Name: Hany Reddy Department: Room: Gender: Male Surgical Pathologist: YESENIA : 1955 Requested By: Order Number: [id number] Reading MD: Artie Flores Measurements Intervals [place] Rate: 110 P: DC: 160 QRS: -68 QRSD: 136 T: 78 QT: 386 QTc: 522 Interpretive Statements Sinus tachycardia with frequent premature ventricular complexes Left axis deviation Nonspecific intraventricular block Minimal voltage criteria for LVH, may be normal variant ( Ramez product ) Electronically Signed On 05-15-2024 18:57:19 PST by Artie Flores
--- NOTE | 2024-05-14 07:48 | DI.RAD.S_ITS ---
PROCEDURE: XR CHEST 1V INDICATIONS: chest pain TECHNIQUE: One view of the chest was acquired. COMPARISON: [facility], CR, XR CHEST 2V, 11/13/2023, 14:27. FINDINGS: Surgical changes and devices: None. Lungs and pleura: Lungs are clear. No pleural effusions or pneumothorax. Mediastinum: Mediastinal contours appear normal. Heart size is normal. Bones and chest wall: No suspicious bony lesions. Overlying soft tissues appear unremarkable. IMPRESSION: No acute cardiopulmonary abnormality is seen. Dictated by: Danilo Roberts M.D. on 05/14/2024 at 8:26 Approved by: Danilo Roberts M.D. on 05/14/2024 at 8:26
[2024-05-14 07:54] LABS: Add Manual Diff / Slide Review NO; Basophils Absolute Auto 100 /uL (0-100); Basophils Percent Auto 0.6 % (0-2); Eosinophils Absolute Auto 100 /uL (0-450); Eosinophils Percent Auto 1.2 % (2-4); Hematocrit 47.7 % (41-53); Hemoglobin 15.5 g/dL (13.5-17.5); Lymphocytes Absolute Auto 3800 /uL (1100-4500); Lymphocytes Percent Auto 33.9 % (25-40); Mean Corpuscular HGB Conc 32.6 % (30-36); Mean Corpuscular Hemoglobin 32.3 PG (26-34); Monocytes Absolute Auto 1200 /uL (0-900); Monocytes Percent Auto 10.7 % (3-14); Neutrophils Absolute Auto 6000 /uL (1500-7000); Neutrophils Percent Auto 53.6 % (50-75); Platelet Count 253 X10^3/uL (150-400); Red Blood Cell Count 4.82 X10^6/uL (4.5-5.9); Red Cell Distribution Width 13.6 % (11.6-14.8); White Blood Cell Count 11.2 X10^3/uL (4.5-11.0)
[2024-05-14 07:56] LABS: Prothrombin Time 11.3 SECONDS (9.4-12.5)
[2024-05-14 07:59] LABS: PTT Partial Thromboplastin Tim 34 SECONDS (25.1-36.5)
[2024-05-14 08:19] LABS: Alanine Aminotransferase 32 IU/L (<50); Albumin 4.6 g/dL (3.5-5.0); Albumin Globulin Ratio 1.3 (1.0-2.8); Alkaline Phosphatase 64 U/L (38-126); Aspartate Aminotransferase 41 IU/L (17-59); BUN Creatinine Ratio 12.6 (6-22); Blood Urea Nitrogen 22 mg/dL (9-20); Calcium 9.5 mg/dL (8.4-10.2); Carbon Dioxide 14 mmol/L (22-32); Chloride 103 mmol/L (98-107); Creatine Kinase 137 U/L (55-170); Estimated Glomerular Filt Rate 41 mL/min (>60); Globulin 3.5 g/dL (1.7-4.1); Glucose 332 mg/dL (80-110); HEMOLYSIS 16 (0-50); Lipase 93 U/L (23-300); Magnesium 1.6 mg/dL (1.6-2.3); Potassium 5.1 mmol/L (3.4-5.1); Sodium 138 mmol/L (137-145); Total Protein 8.1 g/dL (6.3-8.2)
[2024-05-14 08:31] LABS: NT-proBNP (BNP-Adult 18+) 265 pg/mL (<125); Troponin I 0.039 ng/mL (0.01-0.034)
--- NOTE | 2024-05-14 08:39 | ED.GENADULT ---
HPI - General Adult General Chief complaint: Syncope Stated complaint: weakness afib Time Seen by Provider: 05/14/24 07:29 Source: patient and EMS Mode of arrival: EMS History of Present Illness HPI narrative: 69-year-old male with history of atrial fibrillation diagnosed 10 years ago, followed by battery plate remover Dr. Calloway, no blood thinner medications, for which he takes dofetilide with no recent years dose changes, also takes diltiazem, was feeling well last night, and this morning, was walking around his neighborhood when he felt generalized weakness, while walking his dog, sat to the ground, neighbor noticed he was on the ground, no fall or trauma, nephew was summoned, unable to assist for ambulation, 911 called, transported from the scene, glucose reportedly normal. No specific treatment during transport. No chest pain, shortness of breath, seizure shaking activity, focal weakness face arm or leg, focal numbness face arm or leg. Feels a little bit better without specific treatment here in the emergency department. Followed by area battery plate remover Dr. Calloway, PCP Dr. Cook. Related Data Home Medications Medication Instructions Recorded Confirmed dofetilide 500 mcg capsule 500 mcg PO BID ##0 10/26/15 01/08/23 (Tikosyn) diltiazem HCl 180 mg 180 mg PO DAILY 07/29/19 01/08/23 capsule,extended release 24 hr Previous Rx's Medication Instructions Recorded losartan 25 mg tablet 25 mg PO DAILY #30 tabs 07/29/19 atorvastatin 40 mg tablet 40 mg PO DAILY #90 tabs 12/09/22 glipizide 10 mg tablet 10 mg PO BID #180 tabs 12/09/22 empagliflozin 10 mg tablet 10 mg PO DAILY #90 tabs 12/10/22 (Jardiance) metformin 1,000 mg tablet 1,000 mg PO BIDCC #180 tabs 02/09/24 Allergies Allergy/AdvReac Type Severity Reaction Status Date / Time No Known Drug Allergies Allergy Verified 01/08/23 15:06 Patient History Medical History Cardiomyopathy (10/24/14) Elevated prostate specific antigen (PSA) (10/02/14) Hyperlipidemia (04/29/11) Paroxysmal atrial fibrillation (02/20/17) Type 2 diabetes mellitus with hyperglycemia Type 2 diabetes mellitus without complication (10/02/14) Type 2 diabetes mellitus without complication, without long-term current use of insulin (06/25/17) Social History marital status: number of children: 0 household members: none lives independently: Yes caregiver/support person: No housing: house pets and animals: Yes education level: other (Bachelors Degree) occupational status: other (Retired) current occupational exposures/hazards: No Previous occupational history: Various claudia/amish: X.Non-specified special claudia needs: No travel history: recent (Back and forth to [facility].) leisure activities: hunting and fishing Smoking Status: Never smoker Tobacco: How many years used: 0 quit status: quit date established (Never smoked.) second hand exposure: No alcohol intake: current (Social drinker, rarely ) substance use type: marijuana (Occasionally.) Smoking Status: Never smoker alcohol intake frequency: 0-2 drinks per day Exam Narrative Exam Narrative: GENERAL: Well-developed patient, in mild distress. HEAD: Atraumatic. Normocephalic. EYES: Pupils equal round and reactive. Extraocular motions intact. No scleral icterus. No injection or drainage. ENT: Nose without bleeding, purulent drainage. Throat without erythema, tonsillar hypertrophy or exudate. Airway patent. NECK: Trachea midline. Non tender CARDIOVASCULAR: Irregularly irregular rhythm, not particularly fast rate, without obvious murmurs, gallops, or rubs. RESPIRATORY: Clear to auscultation. Breath sounds equal bilaterally. No wheezes, rales, or rhonchi. GASTROINTESTINAL: Abdomen soft, non-tender, nondistended. EXTREMITIES: No edema or joint tenderness. BACK: Nontender without deformity or crepitance. No flank tenderness. NEURO: AOx3. Motor functions grossly nonfocal SKIN: No rash or erythema of visible areas Initial Vital Signs Initial Vital Signs: Vital Signs Pulse Rate 114 H 05/14/24 07:31 Respiratory Rate 16 05/14/24 07:31 Pulse Oximetry 96 05/14/24 07:31 Course Orders Ordered: ED Orders 05/14/24 10:28 Ketones (Beta-Hydroxybutyrate) Stat 05/14/24 11:20 PTT Partial Thromboplastin Mark Q6H 05/14/24 13:03 Venous Blood Gas Routine 05/14/24 13:20 Urinalysis and Microscopic Stat Urine Culture Stat 05/14/24 14:20 BMP [Basic Metabolic Panel] Stat Discontinued Medications Heparin Sodium (Porcine) (Heparin 5,000 Unit/Ml Vial) 6,500 unit 80 unit/kg (6500 unit) IV NOW ONE Stop: 05/14/24 10:53 Last Admin: 05/14/24 11:20 Dose: 6,500 unit Documented By: NADYA Sodium Chloride (Normal Saline 0.9%) 1,000 mls @ 500 mls/hr IV BOLUS ONE Stop: 05/14/24 10:56 Last Infusion: 05/14/24 10:09 Dose: Infused Documented By: Admin: 05/14/24 09:00 Dose: 500 mls/hr Documented By: NADYA Heparin Sodium/Dextrose (Heparin Drip) 25,000 unit in 500 mls @ 30.209 mls/hr IV CONT GUILLE; Protocol Last Titration: 05/14/24 15:38 Dose: Infused Documented By: NADYA Co-signed By: KATIE Admin: 05/14/24 11:20 Dose: 18 units/kg/hr, 30.209 mls/hr Documented By: NADYA Co-signed By: PETRA Insulin Human Regular (Insulin Regular 100 Unit/Ml 3 Ml Vial) 5 unit SUBCUT NOW ONE Stop: 05/14/24 10:11 Last Admin: 05/14/24 11:00 Dose: 5 unit Documented By: NADYA Co-signed By: PETRA Vital Signs Vital signs: Vital Signs - 8 hr 05/14/24 11:11 05/14/24 11:11 05/14/24 11:20 Pulse Rate 106 H Respiratory Rate 19 Blood Pressure 123/80 139/86 Pulse Oximetry 98 05/14/24 11:20 05/14/24 11:30 05/14/24 11:30 Pulse Rate 109 H 104 H Respiratory Rate 16 19 Blood Pressure 131/77 Pulse Oximetry 98 98 05/14/24 11:40 05/14/24 11:40 05/14/24 11:50 Pulse Rate 102 H 103 H Respiratory Rate 14 20 Blood Pressure 135/73 Pulse Oximetry 99 98 05/14/24 11:50 05/14/24 12:00 05/14/24 12:00 Pulse Rate 102 H Respiratory Rate 18 Blood Pressure 124/74 126/80 Pulse Oximetry 98 05/14/24 12:10 05/14/24 12:10 05/14/24 12:20 Pulse Rate 101 H Respiratory Rate 16 Blood Pressure 117/81 121/80 Pulse Oximetry 98 05/14/24 12:20 05/14/24 12:30 05/14/24 12:30 Pulse Rate 100 H 98 H Respiratory Rate 19 17 Blood Pressure 123/75 Pulse Oximetry 98 97 05/14/24 12:40 05/14/24 12:40 05/14/24 12:50 Pulse Rate 101 H Respiratory Rate 17 Blood Pressure 120/78 109/73 Pulse Oximetry 97 05/14/24 12:50 05/14/24 13:00 05/14/24 13:00 Pulse Rate 100 H 101 H Respiratory Rate 19 18 Blood Pressure 103/68 Pulse Oximetry 97 98 05/14/24 13:10 05/14/24 13:10 05/14/24 13:20 Pulse Rate 99 H 105 H Respiratory Rate 17 18 Blood Pressure 108/71 Pulse Oximetry 97 98 05/14/24 13:20 05/14/24 13:30 05/14/24 13:30 Pulse Rate 100 H Respiratory Rate 14 Blood Pressure 113/75 113/66 Pulse Oximetry 99 05/14/24 13:41 05/14/24 13:41 05/14/24 13:50 Pulse Rate 100 H Respiratory Rate 16 Blood Pressure 127/68 108/71 Pulse Oximetry 100 05/14/24 13:50 05/14/24 14:00 05/14/24 14:00 Pulse Rate 97 H 98 H Respiratory Rate 18 20 Blood Pressure 118/74 Pulse Oximetry 99 97 05/14/24 14:10 05/14/24 14:10 05/14/24 14:20 Pulse Rate 99 H Respiratory Rate 15 Blood Pressure 118/87 112/79 Pulse Oximetry 98 05/14/24 14:20 05/14/24 14:30 05/14/24 14:30 Pulse Rate 96 H 98 H Respiratory Rate 15 20 Blood Pressure 114/76 Pulse Oximetry 97 94 05/14/24 14:40 05/14/24 14:40 05/14/24 14:50 Pulse Rate 96 H Respiratory Rate 18 Blood Pressure 115/75 138/86 Pulse Oximetry 95 05/14/24 14:50 05/14/24 15:00 05/14/24 15:00 Pulse Rate 100 H 101 H Respiratory Rate 19 15 Blood Pressure 133/83 Pulse Oximetry 97 97 05/14/24 15:10 05/14/24 15:10 Pulse Rate 100 H Respiratory Rate 25 H Blood Pressure 135/84 Pulse Oximetry 98 Medical Decision Making Lab Data Lab results reviewed: Yes I reviewed the patient's lab results. Lab results narrative: White blood cell count 66177, hemoglobin 15.5, platelets 253,000, glucose 332 with serum CO2 14, sodium 138, anion gap elevated 21. BUN 22 with creatinine 1.7. Initial troponin 0. 39 measurable but low. Liver functions and lipase normal. Repeat BMP shows improved gap now 10. Glucose 1-2, potassium 4.7. Repeat BUN 22 with creatinine 1.29. 05/14/24 07:15 05/14/24 14:20 Labs: Lab Results 05/14/24 05/14/24 05/14/24 Range/Units 07:15 09:28 10:28 WBC 11.2 H (4.5-11.0) X10^3/uL RBC 4.82 (4.5-5.9) X10^6/uL Hgb 15.5 (13.5-17.5) g/dL Hct 47.7 (41-53) % MCV 99.0 (80-100) fL MCH 32.3 (26-34) PG MCHC 32.6 (30-36) % RDW 13.6 (11.6-14.8) % Plt Count 253 (150-400) X10^3/uL Neut % (Auto) 53.6 (50-75) % Lymph % (Auto) 33.9 (25-40) % Taney % (Auto) 10.7 (3-14) % Eos % (Auto) 1.2 L (2-4) % Baso % (Auto) 0.6 (0-2) % Neut # (Auto) 6000 (9494-7030) /uL Lymph # (Auto) 3800 (9866-7596) /uL Taney # (Auto) 1200 H (0-900) /uL Eos # (Auto) 100 (0-450) /uL Baso # (Auto) 100 (0-100) /uL PT 11.3 (9.4-12.5) SECONDS INR 1.0 (0.9-1.3) APTT 34 (25.1-36.5) SECONDS VBG pH (7.33-7.43) VBG pCO2 (45-50) mmHg VBG pO2 (35-45) mmHg VBG HCO3 (24-28) mmol/L VBG Total CO2 (24-29) mmol/L VBG O2 Saturation (70-75) % VBG Base Excess (0-4) mmol/L FiO2 % % Sodium 138 (137-145) mmol/L Potassium 5.1 (3.4-5.1) mmol/L Chloride 103 (98-107) mmol/L Carbon Dioxide 14 L (22-32) mmol/L BUN 22 H (9-20) mg/dL Creatinine 1.74 H (0.66-1.25) mg/dL Estimated GFR 41 L (>60) mL/min BUN/Creatinine Ratio 12.6 (6-22) Glucose 332 H (80-110) mg/dL Calcium 9.5 (8.4-10.2) mg/dL Magnesium 1.6 (1.6-2.3) mg/dL Total Bilirubin 1.0 (0.2-1.3) mg/dL AST 41 (17-59) IU/L ALT 32 (<50) IU/L Alkaline Phosphatase 64 (38-126) U/L Total Creatine Kinase 137 (55-170) U/L Troponin I 0.039 H 0.201 H* (0.01-0.034) ng/mL NT-Pro-B Natriuret Pep 265 H (<125) pg/mL Total Protein 8.1 (6.3-8.2) g/dL Albumin 4.6 (3.5-5.0) g/dL Globulin 3.5 (1.7-4.1) g/dL Albumin/Globulin Ratio 1.3 (1.0-2.8) Lipase 93 (23-300) U/L Urine Color Urine Appearance Urine pH (4.5-8.0) Ur Specific Lancaster (1.000-1.035) Urine Protein (Negative) Urine Glucose (UA) (Negative) g/dL Urine Ketones (NEGATIVE) Urine Occult Blood (Negative) Urine Nitrate (Negative) Urine Bilirubin (NEGATIVE) Urine Urobilinogen (0.2) E.U./dL Ur Leukocyte Esterase (NEGATIVE) Urine RBC (0-5/HPF) Urine WBC (0-5/HPF) Ur Squamous Epith Cells (0-5/HPF) Urine Bacteria (None) Granular Casts (None) Ur Culture Indicated? Vol Urine Centrifuged Ketones 1.38 H (<0.27) mmol/L 05/14/24 05/14/24 05/14/24 Range/Units 11:20 13:03 13:20 WBC (4.5-11.0) X10^3/uL RBC (4.5-5.9) X10^6/uL Hgb (13.5-17.5) g/dL Hct (41-53) % MCV (80-100) fL MCH (26-34) PG MCHC (30-36) % RDW (11.6-14.8) % Plt Count (150-400) X10^3/uL Neut % (Auto) (50-75) % Lymph % (Auto) (25-40) % Taney % (Auto) (3-14) % Eos % (Auto) (2-4) % Baso % (Auto) (0-2) % Neut # (Auto) (8483-0721) /uL Lymph # (Auto) (1278-9591) /uL Taney # (Auto) (0-900) /uL Eos # (Auto) (0-450) /uL Baso # (Auto) (0-100) /uL PT (9.4-12.5) SECONDS INR (0.9-1.3) APTT 34 (25.1-36.5) SECONDS VBG pH 7.35 (7.33-7.43) VBG pCO2 40.7 L (45-50) mmHg VBG pO2 25 L (35-45) mmHg VBG HCO3 22 L (24-28) mmol/L VBG Total CO2 22 L (24-29) mmol/L VBG O2 Saturation 43 L (70-75) % VBG Base Excess -3.2 L (0-4) mmol/L FiO2 % 21.0 % % Sodium (137-145) mmol/L Potassium (3.4-5.1) mmol/L Chloride (98-107) mmol/L Carbon Dioxide (22-32) mmol/L BUN (9-20) mg/dL Creatinine (0.66-1.25) mg/dL Estimated GFR (>60) mL/min BUN/Creatinine Ratio (6-22) Glucose (80-110) mg/dL Calcium (8.4-10.2) mg/dL Magnesium (1.6-2.3) mg/dL Total Bilirubin (0.2-1.3) mg/dL AST (17-59) IU/L ALT (<50) IU/L Alkaline Phosphatase (38-126) U/L Total Creatine Kinase (55-170) U/L Troponin I (0.01-0.034) ng/mL NT-Pro-B Natriuret Pep (<125) pg/mL Total Protein (6.3-8.2) g/dL Albumin (3.5-5.0) g/dL Globulin (1.7-4.1) g/dL Albumin/Globulin Ratio (1.0-2.8) Lipase (23-300) U/L Urine Color Yellow Urine Appearance Clear Urine pH 5.0 (4.5-8.0) Ur Specific Lancaster 1.020 (1.000-1.035) Urine Protein Trace H (Negative) Urine Glucose (UA) Trace H (Negative) g/dL Urine Ketones 1+ H (NEGATIVE) Urine Occult Blood Negative (Negative) Urine Nitrate Negative (Negative) Urine Bilirubin Negative (NEGATIVE) Urine Urobilinogen 0.2 (0.2) E.U./dL Ur Leukocyte Esterase Negative (NEGATIVE) Urine RBC None seen (0-5/HPF) Urine WBC 5-10/hpf H (0-5/HPF) Ur Squamous Epith Cells 5-10 /hpf H (0-5/HPF) Urine Bacteria Few (2-10) H (None) Granular Casts 1-5/lpf (None) Ur Culture Indicated? Specimen cultured Vol Urine Centrifuged 10ml (spun) Ketones (<0.27) mmol/L 05/14/24 Range/Units 14:20 WBC (4.5-11.0) X10^3/uL RBC (4.5-5.9) X10^6/uL Hgb (13.5-17.5) g/dL Hct (41-53) % MCV (80-100) fL MCH (26-34) PG MCHC (30-36) % RDW (11.6-14.8) % Plt Count (150-400) X10^3/uL Neut % (Auto) (50-75) % Lymph % (Auto) (25-40) % Taney % (Auto) (3-14) % Eos % (Auto) (2-4) % Baso % (Auto) (0-2) % Neut # (Auto) (7077-2141) /uL Lymph # (Auto) (2441-3005) /uL Taney # (Auto) (0-900) /uL Eos # (Auto) (0-450) /uL Baso # (Auto) (0-100) /uL PT (9.4-12.5) SECONDS INR (0.9-1.3) APTT (25.1-36.5) SECONDS VBG pH (7.33-7.43) VBG pCO2 (45-50) mmHg VBG pO2 (35-45) mmHg VBG HCO3 (24-28) mmol/L VBG Total CO2 (24-29) mmol/L VBG O2 Saturation (70-75) % VBG Base Excess (0-4) mmol/L FiO2 % % Sodium 136 L (137-145) mmol/L Potassium 4.7 (3.4-5.1) mmol/L Chloride 109 H (98-107) mmol/L Carbon Dioxide 17 L (22-32) mmol/L BUN 22 H (9-20) mg/dL Creatinine 1.29 H (0.66-1.25) mg/dL Estimated GFR 59 L (>60) mL/min BUN/Creatinine Ratio 17.1 (6-22) Glucose 122 H D (80-110) mg/dL Calcium 8.8 (8.4-10.2) mg/dL Magnesium (1.6-2.3) mg/dL Total Bilirubin (0.2-1.3) mg/dL AST (17-59) IU/L ALT (<50) IU/L Alkaline Phosphatase (38-126) U/L Total Creatine Kinase (55-170) U/L Troponin I (0.01-0.034) ng/mL NT-Pro-B Natriuret Pep (<125) pg/mL Total Protein (6.3-8.2) g/dL Albumin (3.5-5.0) g/dL Globulin (1.7-4.1) g/dL Albumin/Globulin Ratio (1.0-2.8) Lipase (23-300) U/L Urine Color Urine Appearance Urine pH (4.5-8.0) Ur Specific Lancaster (1.000-1.035) Urine Protein (Negative) Urine Glucose (UA) (Negative) g/dL Urine Ketones (NEGATIVE) Urine Occult Blood (Negative) Urine Nitrate (Negative) Urine Bilirubin (NEGATIVE) Urine Urobilinogen (0.2) E.U./dL Ur Leukocyte Esterase (NEGATIVE) Urine RBC (0-5/HPF) Urine WBC (0-5/HPF) Ur Squamous Epith Cells (0-5/HPF) Urine Bacteria (None) Granular Casts (None) Ur Culture Indicated? Vol Urine Centrifuged Ketones (<0.27) mmol/L Urine Dip Bedside Urine Glucose Negative Bedside Urine Bilirubin - Negative Bedside Urine Ketone +/- 5 Urine Specific Lancaster 1.015 Bedside Urine Occult Blood - Negative Bedside Urine pH 5.5 Bedside Urine Protein +/- 15 Bedside Urine Urobilinogen - Negative Bedside Urine Nitrite - Negative Bedside Urine Leukocytes - Negative Esterase Point of care testing: Urine Dip Bedside Urine Glucose Negative Bedside Urine Bilirubin - Negative Bedside Urine Ketone +/- 5 Urine Specific Lancaster 1.015 Bedside Urine Occult Blood - Negative Bedside Urine pH 5.5 Bedside Urine Protein +/- 15 Bedside Urine Urobilinogen - Negative Bedside Urine Nitrite - Negative Bedside Urine Leukocytes - Negative Esterase Imaging Data Chest x-ray: Radiologist's Impression: [place] [address] XRay Report Signed Patient: Hany Reddy MR#: [id number] : 1955 Acct:[id number] Age/Sex: 69 / M Date of Service: 05/14/24 Loc: ED Accession Number: [id number] Procedure: XR chest 1V Ordering Provider: Keron Parra MD PROCEDURE: XR CHEST 1V INDICATIONS: chest pain TECHNIQUE: One view of the chest was acquired. COMPARISON: [facility], , XR CHEST 2V, 11/13/2023, 14:27. FINDINGS: Surgical changes and devices: None. Lungs and pleura: Lungs are clear. No pleural effusions or pneumothorax. Mediastinum: Mediastinal contours appear normal. Heart size is normal. Bones and chest wall: No suspicious bony lesions. Overlying soft tissues appear unremarkable. IMPRESSION: No acute cardiopulmonary abnormality is seen. Dictated by: Danilo Roberts M.D. on 05/14/2024 at 8:26 Approved by: Danilo Roberts M.D. on 05/14/2024 at 8:26 CT scan - head: Radiologist's Impression: [address] [address] [address] Scan Report Signed Patient: Hany Reddy MR#: [id number] : 1955 Acct:[id number] Age/Sex: 69 / M Date of Service: 05/14/24 Loc: ED Accession Number: [id number] Procedure: CT head/brain wo con Ordering Provider: Keron Parra MD PROCEDURE: CT HEAD/BRAIN WO CON INDICATIONS: near syncope, hx Afib TECHNIQUE: Noncontrast 4.5 mm thick angled axial sections acquired from the foramen magnum to the vertex, with coronal and sagittal reformats. For radiation dose reduction, the following was used: automated exposure control, adjustment of mA and/or kV according to patient size. COMPARISON: None. FINDINGS: Image quality: Diagnostic. CSF spaces: Basal cisterns are patent. No extra-axial fluid collections. Ventricles are normal in size and shape. Brain: No midline shift. No intracranial masses or hemorrhage. Valencia-white matter interface is normal. Skull and face: Calvarium and visualized facial bones are intact, without suspicious lesions. Sinuses: Visualized sinuses and mastoids are clear. IMPRESSION: No acute intracranial pathology. Approved by: Sky Storm M.D. on 05/14/2024 at 9:08 ECG Data Attestation: I personally reviewed and interpreted this ECG as follows: Interpretation: Sinus tachycardia with frequent PVCs. LVH. Nonspecific intraventricular block. Similar pattern on pre-hospital study. OR 160, QRS 136, QTC 522. [facility] Narrative Medical decision making narrative: 69-year-old male with history of previous atrial fibrillation for which he takes dofetilide, no chronic anticoagulation, felt near-syncope in sat to the ground while walking his dog this morning, unable to get up, EMS transport, glucose reportedly normal during transport. No specific treatments during transport. Mild tachycardia noted, irregular. EKG shows sinus rhythm with PACs frequent. Labs pending. No lower extremity edema, we will give IV fluid bolus. Initial troponin 0.039 low but measurable, we will repeat interval troponin. Chest x-ray no acute changes, see radiology report. Lab studies: White blood cell count 06872, hemoglobin 15.5, platelets 253,000, glucose 332 with serum CO2 14, sodium 138, anion gap elevated 21. BUN 22 with creatinine 1.7. Initial troponin 0. 39 measurable but low. Liver functions and lipase normal. Repeat BMP shows improved gap now 10. Glucose 1-2, potassium 4.7. Repeat BUN 22 with creatinine 1.29. Glucose 300s, anion gap 21, IV fluids given, potassium 5.1 noted, subcutaneous insulin, we will add ketones/VBG. CT head, no acute changes, see radiology report. Repeat troponin 0.2 elevated, consider non STEMI, consider troponin elevation secondary to PE. CT angiogram chest study ordered. CTA chest shows saddle embolus with RV strain pattern, see radiology report, phone call from them pending report that is imported above. Patient has no ongoing chest pain or dizziness or weakness, systolic blood pressure 110. We will hold tPA for now. Start heparin bolus/infusion. Transfer to facility with IR/vascular capability for clot removal. Patient expressed understanding, consents to transfer for higher level of care 1315, case discussed with interventional cardiology Dr. Villegas of [facility] accepts patient for admission, he can do clot removal, await call back from high speed operator. 1545, case discussed with high speed operator [facility], accepts patient for transfer Critical Care Time Critical Care Time Critical Care Time: Yes Total Critical Care Time: 35 Attestation: The high probability of a clinically significant, sudden or life threatening deterioration of the [cardiopulmonary, cerebrovascular, neuro, metabolic] system(s) required my full and direct attention, intervention and personal management. The aggregate critical care time was [35] minutes. This time is in addition to time spent performing reported procedures but includes the following: [x] Data Review and interpretation [x] Patient assessment and monitoring of vital signs [x] Documentation [x] Medication orders and management Discharge Plan Departure Patient Disposition: [facility] Clinical Impression: Near syncope, Acute saddle pulmonary embolism with acute cor pulmonale, Elevated troponin, Diabetic ketoacidosis Prescriptions: No Action dofetilide [Tikosyn] 500 MCG capsule 500 mcg PO BID Qty: 0 Jardiance 10 mg tablet 10 mg PO DAILY Qty: 90 3RF metformin 1,000 mg tablet 1,000 mg PO BIDCC Qty: 180 0RF Rx Instructions: APPT DUE WITH PCP PRIOR TO END OF RX/FUTURE FILLS. PLEASE CALL TO SCHEDULE APPT. THANKS 02/09/24. glipizide 10 mg tablet 10 mg PO BID Qty: 180 3RF atorvastatin 40 mg tablet 40 mg PO DAILY Qty: 90 3RF diltiazem HCl 180 mg capsule,extended release 24hr 180 mg PO DAILY losartan 25 mg tablet 25 mg PO DAILY Qty: 30 0RF Referrals: Kayden Cook MD [Primary Care Provider] -
[2024-05-14] MEDS: SODIUM CHLORIDE 0.9% 1,000 ML 500 ML IV (09:00)
--- NOTE | 2024-05-14 09:06 | DI.CT.S_ITS ---
PROCEDURE: CT HEAD/BRAIN WO CON INDICATIONS: near syncope, hx Afib TECHNIQUE: Noncontrast 4.5 mm thick angled axial sections acquired from the foramen magnum to the vertex, with coronal and sagittal reformats. For radiation dose reduction, the following was used: automated exposure control, adjustment of mA and/or kV according to patient size. COMPARISON: None. FINDINGS: Image quality: Diagnostic. CSF spaces: Basal cisterns are patent. No extra-axial fluid collections. Ventricles are normal in size and shape. Brain: No midline shift. No intracranial masses or hemorrhage. Valencia-white matter interface is normal. Skull and face: Calvarium and visualized facial bones are intact, without suspicious lesions. Sinuses: Visualized sinuses and mastoids are clear. IMPRESSION: No acute intracranial pathology. Approved by: Sky Storm M.D. on 05/14/2024 at 9:08
[2024-05-14 10:00] LABS: Troponin I 0.201 ng/mL (0.01-0.034)
--- NOTE | 2024-05-14 10:01 | DI.CT.S_ITS ---
PROCEDURE: CT ANGIO CHEST PE PROTOCOL INDICATIONS: rising trop, near syncope, eval for PE TECHNIQUE: After the administration of intravenous contrast, 2 mm thick sections acquired from the pulmonary apices to the posterior costophrenic angles. 3-dimensional maximum intensity projection (MIP) coronal and sagittal reformats were then acquired through the thorax. For radiation dose reduction, the following was used: automated exposure control, adjustment of mA and/or kV according to patient size. COMPARISON: None. FINDINGS: Pulmonary arteries: Bilateral pulmonary emboli present in both main pulmonary arteries consistent with saddle emboli. Straightening of the intraventricular septum suggests right heart strain. Lower Neck: No enlarged lymph nodes. Thyroid: No thyroid nodules which require sonographic follow up, per consensus guidelines. Axillae: No enlarged lymph nodes. Chest Wall: Unremarkable. Bones: Unremarkable. Lungs and Pleura: Minimal bibasilar atelectasis or Heart: Heart size is normal. No pericardial effusion. Thoracic Vessels: No aortic aneurysm. Mediastinum and Nika: No enlarged lymph nodes. Esophagus: No wall thickening. No hiatal hernia. Upper Abdomen: Visualized upper abdomen solid organs and bowel loops appear normal. IMPRESSION: Large saddle embolism involving both the right and left pulmonary artery. Bowing of the interventricular septum suggests right heart strain as well. No evidence of pulmonary infarct. Note: Critical results were discussed with Dr. Parra at 09:53 AM [place] time on 05/14/24 Approved by: Sky Storm M.D. on 05/14/2024 at 9:54
[2024-05-14 10:54] LABS: Ketones (Beta-Hydroxybutyrate) 1.38 mmol/L (<0.27)
[2024-05-14] MEDS: INSULIN REGULAR 100 UNIT/ML 3 ML VIAL SUBCUT (11:00)
[2024-05-14] MEDS: HEPARIN 5,000 UNIT/ML VIAL 6500 UNIT IV (11:20)
[2024-05-14] MEDS: HEPARIN DRIP 25,000 UNIT/500 ML IV.SOLN 30.209 UNIT IV (11:20)
[2024-05-14 11:37] LABS: PTT Partial Thromboplastin Tim 34 SECONDS (25.1-36.5)
[2024-05-14 13:06] LABS: Base Excess VBG -3.2 mmol/L (0-4); HCO3 VBG 22 mmol/L (24-28); Oxygen Saturation VBG 43 % (70-75); PCO2 VBG 40.7 mmHg (45-50); PO2 VBG 25 mmHg (35-45); Total CO2 VBG 22 mmol/L (24-29); pH VBG 7.35 (7.33-7.43)
[2024-05-14 13:42] LABS: Appearance Urine UA CLEAR; Bilirubin Urine UA NEGATIVE (NEGATIVE); Color Urine UA YELLOW; Glucose Urine UA TRACE g/dL (Negative); Ketones Urine UA 1+ (NEGATIVE); Leukocyte Esterase Urine UA NEGATIVE (NEGATIVE); Nitrite Urine UA NEGATIVE (Negative); Occult Blood Urine UA NEGATIVE (Negative); Protein Urine UA TRACE (Negative); Urobilinogen Urine UA 0.2 E.U./dL (0.2)
[2024-05-14 13:52] LABS: Bacteria Urine Few (2-10); RBC Urine None Seen (0-5/HPF); Squamous Epithelial Cell Urine 5-10 /HPF (0-5/HPF); Urine Volume 10mL (spun); WBC Urine 5-10/HPF (0-5/HPF)
[2024-05-14 13:53] LABS: Culture Indicated Urine Specimen Cultured; Granular Casts Urine 1-5/LPF
[2024-05-14 14:43] LABS: BUN Creatinine Ratio 17.1 (6-22); Blood Urea Nitrogen 22 mg/dL (9-20); Calcium 8.8 mg/dL (8.4-10.2); Carbon Dioxide 17 mmol/L (22-32); Chloride 109 mmol/L (98-107); Estimated Glomerular Filt Rate 59 mL/min (>60); Glucose 122 mg/dL (80-110); HEMOLYSIS 20 (0-50); Potassium 4.7 mmol/L (3.4-5.1); Sodium 136 mmol/L (137-145)
--- NOTE | 2024-05-14 15:40 | PC.NURSE ---
Addendum entered by Miryam Smith R.N. 05/14/24 15:41: patient left with [facility] with heparin running in L-AC @ 18 u/kg/hr 30.2 mls/hr. Original Note: Patient trabsferred to [facility], heparin running in L-AC
== END 2024-05-14 15:53 | disposition short-term general hospital (02) ==
PROVIDERS: Emergency Provider Emergency Medicine; Family Provider Internal Medicine; PCP Internal Medicine
DX: I26.02 Saddle embolus of pulmonary artery with acute cor pulmonale (principal); R55 Syncope and collapse; R79.89 Other specified abnormal findings of blood chemistry; E11.10 Type 2 diabetes mellitus with ketoacidosis without coma; I49.1 Atrial premature depolarization; Z86.79 Personal history of other diseases of the circulatory system; Z79.84 Long term (current) use of oral hypoglycemic drugs
CPT/HCPCS: 36415; 70450; 71045; 71275; 80048; 80053; 81001; 81003; 82009; 82550; 82805; 83690; 83735; 83880; 84484; 85025; 85610; 85730; 87086; 93005; 96361; 96365; 96366; 96372; 99284; 99291; J1644; Q9967

== ENCOUNTER → 2024-06-07 11:35 | Outpatient (CLI) | payer MEDICARE, OTHER, SELFPAY ==
[2024-06-07 12:09] LABS: Add Manual Diff / Slide Review NO; Basophils Absolute Auto 100 /uL (0-100); Basophils Percent Auto 0.8 % (0-2); Eosinophils Absolute Auto 100 /uL (0-450); Eosinophils Percent Auto 2.2 % (2-4); Hematocrit 40.9 % (41-53); Hemoglobin 13.6 g/dL (13.5-17.5); Lymphocytes Absolute Auto 1700 /uL (1100-4500); Lymphocytes Percent Auto 24.7 % (25-40); Mean Corpuscular HGB Conc 33.3 % (30-36); Mean Corpuscular Hemoglobin 32.3 PG (26-34); Monocytes Absolute Auto 700 /uL (0-900); Monocytes Percent Auto 10.4 % (3-14); Neutrophils Absolute Auto 4200 /uL (1500-7000); Neutrophils Percent Auto 61.9 % (50-75); Platelet Count 271 X10^3/uL (150-400); Red Blood Cell Count 4.21 X10^6/uL (4.5-5.9); Red Cell Distribution Width 13.6 % (11.6-14.8); White Blood Cell Count 6.8 X10^3/uL (4.5-11.0)
[2024-06-07 12:49] LABS: Hemoglobin A1C% w Est Avg Glu 8.1 % (4.0-6.0)
[2024-06-07 12:50] LABS: Alanine Aminotransferase 15 IU/L (<50); Albumin 3.9 g/dL (3.5-5.0); Albumin Globulin Ratio 1.4 (1.0-2.8); Alkaline Phosphatase 46 U/L (38-126); Aspartate Aminotransferase 20 IU/L (17-59); BUN Creatinine Ratio 9.9 (6-22); Bilirubin Total 0.5 mg/dL (0.2-1.3); Blood Urea Nitrogen 10 mg/dL (9-20); Carbon Dioxide 23 mmol/L (22-32); Chloride 104 mmol/L (98-107); Estimated Glomerular Filt Rate > 60 mL/min (>60); Globulin 2.7 g/dL (1.7-4.1); Glucose 134 mg/dL (80-110); HEMOLYSIS < 15 (0-50); Potassium 4.2 mmol/L (3.4-5.1); Sodium 137 mmol/L (137-145); Total Protein 6.6 g/dL (6.3-8.2)
[2024-06-07 14:03] LABS: Creatinine Urine Random 151.08 mg/dL
[2024-06-07 14:11] LABS: Microalbumin Urine Random 8.8 mg/dL (0-1.6)
[2024-06-09 17:09] LABS: Dil Russell Viper Venom Conf 1.2 ratio (0.8-1.2); Dilute Russell Viper Venom 65.8 sec (0.0-47.0); Lupus Reflex Interpretation Comment: (.); PTT-LA 42.3 sec (0.0-43.5)
[2024-06-10 11:36] LABS: Cardiolipin Ab IgA <9 APL U/mL (0-11); Cardiolipin Ab IgG <9 GPL U/mL (0-14); Cardiolipin Ab IgM <9 MPL U/mL (0-12)
== END ==
PROVIDERS: Family Provider Internal Medicine; PCP Internal Medicine; Referring Provider Nurse Practitioner; Visit Provider Nurse Practitioner
DX: I48.11 Longstanding persistent atrial fibrillation (principal); E11.65 Type 2 diabetes mellitus with hyperglycemia; I42.9 Cardiomyopathy, unspecified; I48.0 Paroxysmal atrial fibrillation; I26.02 Saddle embolus of pulmonary artery with acute cor pulmonale; E78.5 Hyperlipidemia, unspecified
CPT/HCPCS: 80053; 81241; 82043; 82570; 83036; 85025; 85598; 85613; 86147

== ENCOUNTER → 2024-07-07 07:08 | Outpatient (CLI) | payer MEDICARE, OTHER, SELFPAY ==
--- NOTE | 2024-07-07 07:10 | DI.ECHO.S_ITS ---
[place] [facility]---------+ [facility] : : [address] : : [place] : : [id number] : : Phone: [phone] Echocardiogram Report + + :Name: HANY LOPEZ Study Date: 07/07/2024 Height: 69.5 in : :Hospital ReadingLocation: Weight: 187 lb : : Gender: Male BSA: 2.0 m2 : :: 1955 Age: 69 yrs BP: 140/102 mmHg: :Reason For Study: ATRIAL FIBRILLATION, PULMONARY EMBOLISM : :Ordering Physician: SPIKE, : :SCOTT ROCA Performed By: Stefanie Adler : :Referring: SCOTT LALA : + + Interpretation Summary Wide QRS complexes. Normal LV size and mildly increased wall thickness; EF is 30-35%. Normal chamber sizes. Mild AI; otherwise no significant valvular abnormalities. Mildly dilated aortic root measuring 4.3 cm in diameter. Compared to prior echo at [facility] 07/01/2018, EF is worse, down from 50% to 30-35%. Procedure: A two-dimensional transthoracic echocardiogram with color flow and Doppler was performed. The study quality was technically adequate. Best from apical window. There is no prior echocardiogram noted for this patient. The heart rate ranged between 73-85 bpm during the study. Left Ventricle: There is mild concentric left ventricular hypertrophy. The ejection fraction is estimated to be 30-35%. Right Ventricle: The right ventricle is normal size. Grossly normal function. Atria: The left atrial size is normal. Right atrial size is normal. There is no Doppler evidence for an interatrial shunt. Mitral Valve: The mitral valve leaflets appear to open well. There is no mitral regurgitation noted. Aortic Valve: The aortic valve is not well visualized. The aortic valve is grossly normal. There is no aortic valve stenosis. There is mild aortic regurgitation. Tricuspid Valve: The tricuspid valve leaflets are thin and pliable. There is trace tricuspid regurgitation. Pulmonary artery pressures cannot be estimated because of the lack of a measurable TR jet velocity. Pulmonic Valve: The pulmonic valve is not well seen, but is grossly normal. There is no pulmonic valvular regurgitation. Great Vessels: The aortic root is borderline dilated. The ascending aorta is normal in size. The IVC is of normal diameter and collapses greater than 50% with a sniff. This suggests a low right atrial pressure of 3 mm Hg. Pericardium/ Pleura There is no pericardial effusion. There is no pleural effusion. MMode/2D Measurements & Calculations LVIDd: 5.2 cm LVOT diam: 2.4 cm LVIDs: 4.4 cm Ao root diam: 4.3 cm FS: 15.4 % asc Aorta Diam: 3.7 cm IVSd: 1.1 cm LVPWd: 0.97 cm LV weaver. diameter/BSA (cm/m^2): 2.6 LV sys. diameter/BSA (cm/m^2): 2.2 LA A2 area: 16.1 cm2 RA long axis: 5.0 cm LA A4 area: 14.2 cm2 RA area: 14.2 cm2 LA length (vol): 5.0 cm RA vol: 34.3 ml LA vol: 38.5 ml RA : 17.0 ml/m2 LA vol index: 19.0 ml/m2 IVC diam: 1.9 cm RVDd major: 7.3 cm RVD1 (basal): 3.1 cm RVD2 (mid): 2.3 cm Doppler Measurements & Calculations Ao V2 max: 90.2 cm/sec LVOT Max Eamon: 68.6 cm/sec Ao V2 mean: 61.8 cm/sec LV V1 max P.9 mmHg Ao max P.3 mmHg LV V1 VTI: 12.0 cm Ao mean P.7 mmHg PHILLIP(I,D): 3.7 cm2 Ao V2 VTI: 14.6 cm PHILLIP(V,D): 3.4 cm2 sev ratio: 0.82 PHILLIP indexed to BSA (cm^2/m^2): 1.8 AI P1/2t: 573.3 msec AI dec slope: 241.8 cm/sec2 MV E max eamon: 71.2 cm/sec PA V2 max: 67.8 cm/sec MV A max eamon: 0.44 cm/sec PA V2 mean: 41.3 cm/sec MV E/A: 163.0 PA mean P.79 mmHg Med Peak E' Eamon: 6.3 cm/sec PA pr(Accel): 53.3 mmHg E/E' med: 11.3 Lat Peak E' Eamon: 8.9 cm/sec E/E' lat: 8.0 E/e' average: 9.7 MV dec time: 0.16 sec SV(LVOT): 53.8 ml Electronically signed by: Reba Tucker M.D. on Reading Physician:07/08/2024 03:15 AM
== END ==
PROVIDERS: Family Provider Internal Medicine; PCP Internal Medicine; Referring Provider Nurse Practitioner; Visit Provider Nurse Practitioner
DX: I35.1 Nonrheumatic aortic (valve) insufficiency (principal); I48.11 Longstanding persistent atrial fibrillation; I26.92 Saddle embolus of pulmonary artery without acute cor pulmonale
CPT/HCPCS: 93306

== ENCOUNTER 2024-07-30 22:57 | Emergency (ER) | payer MEDICARE, OTHER, SELFPAY ==
--- NOTE | 2024-07-30 23:01 | DI.RAD.S_ITS ---
PROCEDURE: XR CHEST 1V INDICATIONS: Chest Pain, n/v TECHNIQUE: One view of the chest was acquired. COMPARISON: [facility], CR, XR CHEST 1V, 05/14/2024, 7:45. FINDINGS: Surgical changes and devices: None. Lungs and pleura: Lungs are clear. No pleural effusions or pneumothorax. Mediastinum: Mediastinal contours appear normal. Heart size is normal. Bones and chest wall: No suspicious bony lesions. Overlying soft tissues appear unremarkable. IMPRESSION: No acute cardiopulmonary abnormality is seen. Approved by: Rama Blanchard M.D.,Ph.D. on 07/31/2024 at 0:16
[2024-07-30 23:04] VITALS: PULSE 110; RESP 22; O2SAT 98
--- NOTE | 2024-07-30 23:04 | EKG_ITS ---
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
--- NOTE | 2024-07-30 23:08 | ED_ITS ---
HPI - Chest Pain General Chief Complaint: Dizziness Stated Complaint: heart problems, dizziness, nausea, vomiting Time Seen by Provider: 07/30/24 23:03 History of Present Illness HPI narrative: 69-year-old gentleman history of atrial fibrillation, saddle pulmonary embolus (may 2024) currently on anticoagulation, dilated cardiomyopathy with most recent echo showing EF 40%, high blood pressure, diabetes, dyslipidemia, presents with nausea, weakness, and frequent urination and just overall sense of feeling unwell. He denies chest pain, shortness of breath, fever, chills, diarrhea, cough, runny nose, sore throat, or sick contacts. Other than what is stated 14 point review of system is negative. Related Data Home Medications Medication Instructions Recorded Confirmed dofetilide 500 mcg capsule 500 mcg PO BID ##0 10/26/15 06/20/24 (Tikosyn) apixaban 5 mg tablet (Eliquis) 5 mg PO BID 05/18/24 06/20/24 spironolactone 25 mg tablet 25 mg PO DAILY 05/18/24 06/20/24 losartan 25 mg tablet 25 mg PO BID 06/20/24 06/20/24 metoprolol succinate 25 mg 25 mg PO DAILY 06/20/24 06/20/24 tablet,extended release 24 hr Previous Rx's Medication Instructions Recorded glipizide 10 mg tablet 10 mg PO BID #180 tabs 12/09/22 atorvastatin 40 mg tablet 40 mg PO QPM #90 tabs 05/23/24 metformin 1,000 mg tablet 1,000 mg PO BIDCC #180 tabs 07/15/24 Allergies Allergy/AdvReac Type Severity Reaction Status Date / Time lisinopril AdvReac Cough Verified 06/20/24 11:08 Review of Systems Review of Systems ROS Unobtainable: All systems reviewed & are unremarkable except as noted in HPI and below Patient History Medical History Acute saddle pulmonary embolism with acute cor pulmonale Type 2 diabetes mellitus with hyperglycemia Paroxysmal atrial fibrillation (02/20/17) Cardiomyopathy (10/24/14) Elevated prostate specific antigen (PSA) (10/02/14) Type 2 diabetes mellitus without complication (10/02/14) Hyperlipidemia (04/29/11) Social History marital status: number of children: 0 household members: none lives independently: Yes caregiver/support person: No housing: house pets and animals: Yes education level: other (Bachelors Degree) occupational status: other (Retired) current occupational exposures/hazards: No Previous occupational history: Various claudia/hindu: X.Non-specified special claudia needs: No travel history: recent (Back and forth to [facility].) leisure activities: hunting and fishing Tobacco: How many years used: 0 quit status: quit date established (Never smoked.) second hand exposure: No alcohol intake: current (Social drinker, rarely ) substance use type: marijuana (Occasionally.) alcohol intake frequency: 0-2 drinks per day Exam Narrative Exam Narrative: GENERAL: [69] year old patient appears stated age. Well-developed patient, in mild distress. HEAD: Atraumatic. Normocephalic. EYES: Pupils equal round and reactive. Extraocular motions intact. No scleral icterus. No injection or drainage. ENT: Nose without bleeding, purulent drainage. Throat without erythema, tonsillar hypertrophy or exudate. Airway patent. NECK: Trachea midline. Non tender CARDIOVASCULAR: Regular rate and rhythm without murmurs, gallops, or rubs. RESPIRATORY: Clear to auscultation. Breath sounds equal bilaterally. No wheezes, rales, or rhonchi. GASTROINTESTINAL: Abdomen soft, non-tender, nondistended. EXTREMITIES: No edema or joint tenderness. BACK: Nontender without deformity or crepitance. No flank tenderness. NEURO: AOx3. GCS of 15 nonfocal neuro exam SKIN: No rash or erythema of visible areas Initial Vital Signs Initial Vital Signs: Vital Signs Pulse Rate 110 H 07/30/24 23:04 Respiratory Rate 22 07/30/24 23:04 Pulse Oximetry 98 07/30/24 23:04 Course Orders Ordered: ED Orders 07/30/24 23:01 XR chest 1V Stat EKG-12 Lead Stat RT Consult Eval and Treat NOW 07/30/24 23:07 Complete Blood Count AUTO DIFF Stat Comprehensive Metabolic Panel Stat Lactate (Lactic Acid) Stat Lipase Stat Magnesium Stat NT-proBNP (BNP-Adult 18+) Stat PTT Partial Thromboplastin Mark Stat Prothrombin Time INR Stat Troponin & CK Cardiac Panel Stat 07/31/24 00:03 Venous Blood Gas STAT 07/31/24 00:20 Blood Culture Stat 07/31/24 00:31 Urine Microscopic Stat 07/31/24 00:51 Venous Blood Gas Routine 07/31/24 01:38 Glucose Stat Ketones (Beta-Hydroxybutyrate) Stat Procalcitonin Stat Troponin I Stat INSULIN DRIP PREMIX (Myxredlin Drip Premix) 100 unit in 100 mls @ 8.482 mls/hr IV TITRATE GUILLE; Protocol Last Admin: 07/31/24 01:30 Dose: 0.1 unit/kg/hr, 8.482 mls/hr Documented By: ANTHONY Co-signed By: SAMEERA Discontinued Medications Aspirin (Aspirin 81 Mg Chew Tab) 324 mg PO NOW ONE Stop: 07/30/24 23:02 Last Admin: 07/30/24 23:15 Dose: Not Given Documented By: ANTHONY Sodium Chloride (Normal Saline 0.9%) 1,000 mls @ 1,000 mls/hr IV BOLUS ONE Stop: 07/31/24 01:03 Last Infusion: 07/31/24 01:00 Dose: Infused Documented By: Admin: 07/31/24 00:04 Dose: 1,000 mls/hr Documented By: Lactated Ringer's (Lactated Ringers) 1,000 mls @ 1,000 mls/hr IV BOLUS ONE Stop: 07/31/24 01:03 Last Admin: 07/31/24 01:15 Dose: 1,000 mls/hr Documented By: Ceftriaxone Sodium 2,000 mg/ (Sodium Chloride) 100 mls @ 200 mls/hr IV NOW ONE Stop: 07/31/24 00:30 Last Infusion: 07/31/24 01:11 Dose: Infused Documented By: Admin: 07/31/24 00:40 Dose: 200 mls/hr Documented By: SAMEERA Insulin Human Regular (Insulin Regular 100 Unit/Ml 3 Ml Vial) 10 unit IV NOW ONE Stop: 07/31/24 00:20 Last Admin: 07/31/24 00:28 Dose: 10 unit Documented By: ANTHONY Co-signed By: SAMEERA Ondansetron HCl (Ondansetron 4 Mg/2 Ml Inj) 4 mg IV NOW ONE Stop: 07/31/24 00:20 Last Admin: 07/31/24 00:00 Dose: 4 mg Documented By: ANTHONY Ondansetron HCl (Ondansetron 4 Mg/2 Ml Inj) 4 mg IV NOW ONE Stop: 07/31/24 00:21 Last Admin: 07/31/24 01:47 Dose: Not Given Documented By: ANTHONY Vital Signs Vital signs: Vital Signs - 8 hr 07/30/24 23:04 07/30/24 23:10 07/30/24 23:30 Temperature 97.5 F L Pulse Rate 110 H 113 H 97 H Respiratory Rate 22 28 H 18 Blood Pressure 115/81 Pulse Oximetry 98 99 97 Oxygen Delivery Method Room Air 07/30/24 23:30 07/31/24 00:00 07/31/24 00:00 Temperature Pulse Rate 95 H Respiratory Rate 21 Blood Pressure 146/82 H 143/76 H Pulse Oximetry 97 Oxygen Delivery Method 07/31/24 00:30 07/31/24 00:31 07/31/24 00:31 Temperature Pulse Rate 88 87 Respiratory Rate 24 20 Blood Pressure 138/90 Pulse Oximetry 99 99 Oxygen Delivery Method 07/31/24 01:00 07/31/24 01:00 07/31/24 01:30 Temperature Pulse Rate 89 80 Respiratory Rate 27 H 25 H Blood Pressure 146/71 H Pulse Oximetry 98 97 Oxygen Delivery Method 07/31/24 01:31 07/31/24 01:31 Temperature Pulse Rate 80 Respiratory Rate 26 H Blood Pressure 126/60 Pulse Oximetry 98 Oxygen Delivery Method MDM - Chest Pain Lab Data 07/30/24 23:07 07/30/24 23:07 Labs: Lab Results 07/30/24 07/31/24 07/31/24 Range/Units 23:07 00:31 00:51 WBC 16.9 H (4.5-11.0) X10^3/uL RBC 5.70 (4.5-5.9) X10^6/uL Hgb 18.2 H (13.5-17.5) g/dL Hct 55.9 H (41-53) % MCV 98.1 (80-100) fL MCH 32.0 (26-34) PG MCHC 32.6 (30-36) % RDW 13.8 (11.6-14.8) % Plt Count 325 (150-400) X10^3/uL Neut % (Auto) 91.4 H (50-75) % Lymph % (Auto) 3.6 L (25-40) % [place] % (Auto) 4.6 (3-14) % Eos % (Auto) 0.0 L (2-4) % Baso % (Auto) 0.4 (0-2) % Neut # (Auto) 34569 H (7601-3450) /uL Lymph # (Auto) 600 L (5219-6011) /uL [place] # (Auto) 800 (0-900) /uL Eos # (Auto) 0 (0-450) /uL Baso # (Auto) 100 (0-100) /uL PT 14.2 H (9.4-12.5) SECONDS INR 1.3 (0.9-1.3) APTT 34 (25.1-36.5) SECONDS VBG pH 7.16 L* (7.33-7.43) VBG pCO2 27.9 L (45-50) mmHg VBG pO2 43 (35-45) mmHg VBG HCO3 10 L (24-28) mmol/L VBG Total CO2 10 L (24-29) mmol/L VBG O2 Saturation 66 L (70-75) % VBG Base Excess -17.0 L (0-4) mmol/L FiO2 % 21 % % Sodium 130 L (137-145) mmol/L Potassium 5.8 H (3.4-5.1) mmol/L Chloride 91 L (98-107) mmol/L Carbon Dioxide < 5 L* (22-32) mmol/L BUN 23 H (9-20) mg/dL Creatinine 1.82 H (0.66-1.25) mg/dL Estimated GFR 39 L (>60) mL/min BUN/Creatinine Ratio 12.6 (6-22) Glucose 702 H* (70-99) mg/dL Lactate 10.2 H* (0.7-2.1) mmol/L Calcium 10.1 (8.4-10.2) mg/dL Magnesium 1.9 (1.6-2.3) mg/dL Total Bilirubin 1.4 H (0.2-1.3) mg/dL AST 53 (17-59) IU/L ALT 46 (<50) IU/L Alkaline Phosphatase 76 (38-126) U/L Total Creatine Kinase 104 (55-170) U/L Troponin I 0.407 H* (0.01-0.034) ng/mL NT-Pro-B Natriuret Pep 64840 H (<125) pg/mL Total Protein 9.2 H (6.3-8.2) g/dL Albumin 5.1 H (3.5-5.0) g/dL Globulin 4.1 (1.7-4.1) g/dL Albumin/Globulin Ratio 1.2 (1.0-2.8) Lipase 229 (23-300) U/L Urine RBC None seen (0-5/HPF) Urine WBC None seen (0-5/HPF) Ur Squamous Epith Cells None seen (0-5/HPF) Urine Bacteria None seen (None) Ur Culture Indicated? Cult not indicated Vol Urine Centrifuged 10ml (spun) ECG Data Interpretation: Sinus Tach HR 108 CT 184 QRS [address]-t wave change Unchanged from 05/14/24 [facility] Narrative Medical decision making narrative: All lab work, vital signs, nurse triage note, medication list, and all imaging studies, and previous ER visits all reviewed. Pt given NS 1L bolus x 2, LR 1L bolus x1, NS w/20mEQ KCL IV, Insulin 10u IV x 1 and now Insulin drip. Pt was also given rocephin 2g IV x 1. Case was discussed with Dr.Macgregor Arthur FERRER senior front end engineer regarding elevated troponin and at this this time recommended 2nd trop for which it was did not significantly increase from 0.407 to 0.432 and to get an echo and hold off on heparin. Patient was about to be admitted here to hospitalist service when he went into pulseless Vtach at 243am and had ROSC 305am (code for 22mins) briefly for which he was given CPR, epi 1mg IV, 200 J then went into PEA continued CPR and another epi 1mg IV x1 followed by 1 amp bicarb and 1g Calcium Chloride, BS 441 (during code) and 432 now. Pt had ROSC with map 88 now 90 with no requirement for Epi drip. He is axox4 with a GCS 15. Nonfocal neuro exam but doesn't recall the events. Case discussed with [facility] who declined admission stating needing higher level care and Cardiology to be on board. Case discussed with Dr. Almonte ICU doctor who has graciously accepted patient for inpatient admission at [facility]. CRITICAL CARE TIME 90MINS Discharge Plan Departure Patient Disposition: [facility] Clinical Impression: Cardiac arrest with successful resuscitation DKA (diabetic ketoacidosis) Qualifiers: Diabetes mellitus type: type 2 Diabetes mellitus complication detail: without coma Qualified Code(s): E11.10 - Type 2 diabetes mellitus with ketoacidosis without coma Prescriptions: No Action dofetilide [Tikosyn] 500 MCG capsule 500 mcg PO BID Qty: 0 metformin 1,000 mg tablet 1,000 mg PO BIDCC Qty: 180 1RF glipizide 10 mg tablet 10 mg PO BID Qty: 180 3RF Eliquis 5 mg tablet 5 mg PO BID Rx Instructions: Take (2 tablets) 10 mg total BID for next 6 days then decrease to 1 tablet (5mg) total BID. spironolactone 25 mg tablet 25 mg PO DAILY metoprolol succinate 25 mg tablet extended release 24 hr 25 mg PO DAILY losartan 25 mg tablet 25 mg PO BID atorvastatin 40 mg tablet 40 mg PO QPM Qty: 90 3RF Referrals: Kayden Cook MD [Primary Care Provider] -
[2024-07-30 23:10] VITALS: BP 115/81; PULSE 113; RESP 28; TEMP 36.4; O2SAT 99; BMI 27.6
[2024-07-30 23:30] VITALS: BP 146/82; PULSE 97; RESP 18; O2SAT 97
[2024-07-30 23:30] LABS: Add Manual Diff / Slide Review NO; Basophils Absolute Auto 100 /uL (0-100); Basophils Percent Auto 0.4 % (0-2); Eosinophils Absolute Auto 0 /uL (0-450); Hematocrit 55.9 % (41-53); Hemoglobin 18.2 g/dL (13.5-17.5); Lymphocytes Absolute Auto 600 /uL (1100-4500); Lymphocytes Percent Auto 3.6 % (25-40); Mean Corpuscular HGB Conc 32.6 % (30-36); Mean Corpuscular Volume 98.1 fL (80-100); Monocytes Absolute Auto 800 /uL (0-900); Monocytes Percent Auto 4.6 % (3-14); Neutrophils Absolute Auto 15500 /uL (1500-7000); Neutrophils Percent Auto 91.4 % (50-75); Platelet Count 325 X10^3/uL (150-400); Red Cell Distribution Width 13.8 % (11.6-14.8); White Blood Cell Count 16.9 X10^3/uL (4.5-11.0)
[2024-07-30 23:38] LABS: INR 1.3 (0.9-1.3); Prothrombin Time 14.2 SECONDS (9.4-12.5)
[2024-07-30 23:41] LABS: PTT Partial Thromboplastin Tim 34 SECONDS (25.1-36.5)
[2024-07-30 23:56] LABS: Alanine Aminotransferase 46 IU/L (<50); Albumin 5.1 g/dL (3.5-5.0); Albumin Globulin Ratio 1.2 (1.0-2.8); Alkaline Phosphatase 76 U/L (38-126); Aspartate Aminotransferase 53 IU/L (17-59); BUN Creatinine Ratio 12.6 (6-22); Bilirubin Total 1.4 mg/dL (0.2-1.3); Blood Urea Nitrogen 23 mg/dL (9-20); Calcium 10.1 mg/dL (8.4-10.2); Chloride 91 mmol/L (98-107); Creatine Kinase 104 U/L (55-170); Estimated Glomerular Filt Rate 39 mL/min (>60); Globulin 4.1 g/dL (1.7-4.1); Lipase 229 U/L (23-300); Magnesium 1.9 mg/dL (1.6-2.3); Sodium 130 mmol/L (137-145); Total Protein 9.2 g/dL (6.3-8.2)
[2024-07-30 23:57] LABS: Lactate (Lactic Acid) 10.2 mmol/L (0.7-2.1)
[2024-07-31] VITALS (23 sets, daily range): BP systolic 99–186; BP diastolic 57–111; PULSE 67–138; RESP 13–27; O2SAT 86–100
[2024-07-31] MEDS: SODIUM CHLORIDE 0.9% 1,000 ML 1000 ML IV ×3 (00:04→05:16)
[2024-07-31 00:08] LABS: HEMOLYSIS 118 (0-50); NT-proBNP (BNP-Adult 18+) 19900 pg/mL (<125); Potassium 5.8 mmol/L (3.4-5.1)
[2024-07-31 00:10] LABS: Carbon Dioxide < 5 mmol/L (22-32); Troponin I 0.407 ng/mL (0.01-0.034)
[2024-07-31 00:11] LABS: Glucose 702 mg/dL (70-99)
[2024-07-31] MEDS: INSULIN REGULAR 100 UNIT/ML 3 ML VIAL 10 UNIT IV (00:28)
[2024-07-31] MEDS: cefTRIAXone 2,000 MG in SODIUM CHLORIDE 0.9% 100 ML 200 MG IV (00:40)
[2024-07-31 00:50] LABS: Reflexed Lactate in 2 Hours Y
[2024-07-31 00:55] LABS: HCO3 VBG 10 mmol/L (24-28); Oxygen Saturation VBG 66 % (70-75); PCO2 VBG 27.9 mmHg (45-50); PO2 VBG 43 mmHg (35-45); Total CO2 VBG 10 mmol/L (24-29); pH VBG 7.16 (7.33-7.43)
[2024-07-31 01:05] LABS: Bacteria Urine None Seen; RBC Urine None Seen (0-5/HPF); Squamous Epithelial Cell Urine None Seen (0-5/HPF); Urine Volume 10mL (spun); WBC Urine None Seen (0-5/HPF)
[2024-07-31 01:06] LABS: Culture Indicated Urine Cult Not Indicated
--- NOTE | 2024-07-31 01:14 | PC.NURSE ---
Neighbor Alex [facility] [phone]
[2024-07-31] MEDS: LACTATED RINGERS 1,000 ML 1000 ML IV (01:15)
[2024-07-31] MEDS: INSULIN DRIP PREMIX 100 UNIT/100 ML PLAST..BAG 8.482 UNIT IV (01:30)
--- NOTE | 2024-07-31 01:45 | PC.NURSE ---
recheck fingerstick >500 blood drawn for lab glucose and sent
[2024-07-31 02:06] LABS: Ketones (Beta-Hydroxybutyrate) 5.61 mmol/L (<0.27)
[2024-07-31 02:15] LABS: Troponin I 0.432 ng/mL (0.01-0.034)
[2024-07-31 02:16] LABS: Glucose 537 mg/dL (70-99); Lactate 2HR (Lactic Acid Rflx) 6.7 mmol/L (0.7-2.1)
[2024-07-31 02:18] LABS: Procalcitonin 0.116 ng/mL (<0.5)
[2024-07-31] MEDS: KCL 20 MEQ IN NS 1,000 ML 125 MEQ IV (02:24)
[2024-07-31] MEDS: EPINEPHrine 1 MG/10 ML SYRINGE IV ×2 (02:46→02:50)
[2024-07-31] MEDS: SODIUM BICARB 8.4% SYRINGE 50 MEQ IV (02:50)
[2024-07-31] MEDS: CALCIUM CHLORIDE 1,000 MG in SODIUM CHLORIDE 0.9% 100 ML 110 MG IV (02:52)
--- NOTE | 2024-07-31 02:57 | EKG_ITS ---
[address] [address] Test Date: 2024-07-31 Pat Name: Hany Reddy Department: Room: Gender: Male Planning Official: : 1955 Requested By: Order Number: [id number] Reading MD: James Santoro Measurements Intervals [place] Rate: 123 P: [place]: QRS: -39 QRSD: 136 T: 96 QT: 300 QTc: 429 Interpretive Statements Poor data quality, interpretation may be adversely affected Atrial fibrillation with rapid ventricular response Left axis deviation Nonspecific intraventricular block Cannot rule out Anteroseptal infarct , age undetermined T wave abnormality, consider inferior ischemia Electronically Signed On 08-03-2024 16:16:49 PDT by James Santoro
--- NOTE | 2024-07-31 02:58 | DI.RAD.S_ITS ---
PROCEDURE: XR CHEST 1V INDICATIONS: ROSC TECHNIQUE: One view of the chest was acquired. COMPARISON: Merged With [facility], CT, CT ANGIO CHEST PE PROTOCOL, 05/14/2024, 10:08. Merged With [facility], CR, XR CHEST 1V, 05/14/2024, 7:45. Merged With [facility], CR, XR CHEST 1V, 07/30/2024, 23:06. FINDINGS: Surgical changes and devices: None. Lungs and pleura: On this supine examination, no large pneumothorax or large pleural effusions are seen. No focal areas of lung consolidation are seen. Low lung volumes are noted. This causes a crowded appearance to the lung markings and limits evaluation. Mediastinum: The cardiac contours are within normal limits. The aorta demonstrates calcification and tortuosity. Bones and chest wall: No suspicious bony lesions. Overlying soft tissues appear unremarkable. IMPRESSION: Limited portable chest examination, without a significant cardiopulmonary abnormality identified. Note: No significant discrepancy from the preliminary report. Dictated by: Spencer Henderson M.D. on 07/31/2024 at 6:38 Approved by: Spencer Henderson M.D. on 07/31/2024 at 6:39
[2024-07-31 03:11] LABS: HCO3 VBG 13 mmol/L (24-28); Oxygen Saturation VBG 78 % (70-75); PCO2 VBG 31.3 mmHg (45-50); PO2 VBG 50 mmHg (35-45); Total CO2 VBG 12 mmol/L (24-29); pH VBG 7.21 (7.33-7.43)
--- NOTE | 2024-07-31 03:45 | PC.NURSE ---
pt moved to 2 cleaned and changed into a gown and placed on stretcher with fresh linens
--- NOTE | 2024-07-31 04:31 | PC.NURSE ---
0243- monitor alarm with Vtach noted upon entering room it was noted pt appeared to be having seizure like activity rolling to his side with agonal resp, pt was unresponsive and pale, no pulse, called for help, CPR started; 0246 epinephrine 1 mg given IVP, 0249 snoring respirations, respiratory managing airway and providing O2 per ambu bag defibrillator charged to 200 joules and pt shocked with a return of a pulse with a wide complex tachycardia noted on the monitor, 0250 epinephrine 1mg and Na Bicarb one amp given IVP, gasping resp continue with respiratory monitoring and assisting with airway, 0252 Ca Chloride 1gm given IVP vs 186/111, HR 156 pt starting to be combative but not responsive to name, 0254 fingerstick glucose 443, pt opening eyes labs drawn vs HR 175; 0257 EKG done vs 157/75, HR 118, pt breathing without assistance and placed on a NRB at 15L, 0300 vs 137/71, 96, 100% NRB pt aaa x 3 and talking asking what happened, explained to pt the events, pt states the last thing he remembers is dozing off to sleep, pt does not remember feeling bad before going to sleep
[2024-07-31] MEDS: MAGNESIUM SULFATE 2 GM/50 ML PIGGYBACK IV (05:13)
--- NOTE | 2024-07-31 06:45 | PC.NURSE ---
report called to JJ Turner at [facility] [phone] ext [phone]
[2024-07-31] MEDS: ONDANSETRON 4 MG/2 ML INJ IV ×2 (06:55)
--- NOTE | 2024-07-31 07:16 | PC.NURSE ---
Friend Alex Martin [phone]
[2024-07-31 07:20] LABS: Creatine Kinase 100 U/L (55-170)
[2024-07-31 07:36] LABS: Troponin I 0.523 ng/mL (0.01-0.034)
--- NOTE | 2024-07-31 07:38 | PC.NURSE ---
0735: critical value from lab, verified name, ; critical troponin 0.523 0738: Report on critical troponin value called to [facility] Demetrius GARDNER -- ICU PH# [phone] - notified Marcelina GARDNER of critical troponin = 0.523. Patient is already enroute to that facility via [facility] ambulance
== END 2024-07-31 07:12 | disposition short-term general hospital (02) ==
PROVIDERS: Emergency Provider Family Medicine; Family Provider Internal Medicine; PCP Internal Medicine
DX: I46.9 Cardiac arrest, cause unspecified (principal); E11.10 Type 2 diabetes mellitus with ketoacidosis without coma; R11.2 Nausea with vomiting, unspecified; I48.91 Unspecified atrial fibrillation; Z79.01 Long term (current) use of anticoagulants; Z86.711 Personal history of pulmonary embolism
CPT/HCPCS: 36415; 71045; 80053; 81015; 82009; 82550; 82805; 82947; 82962; 83605; 83690; 83735; 83880; 84145; 84484; 85025; 85610; 85730; 87040; 92950; 93005; 96365; 96366; 96367; 96368; 96375; 96376; 99284; 99291; 99292; J0171; J0696; J2405; J3475

== ENCOUNTER 2024-08-11 10:31 | Emergency (ER) | payer MEDICARE, OTHER, SELFPAY ==
[2024-08-11] VITALS (32 sets, daily range): BP systolic 114–186; BP diastolic 64–104; PULSE 59–89; RESP 16–27; TEMP 36.5–36.9; O2SAT 96–99; BMI 26.5
--- NOTE | 2024-08-11 10:41 | DI.RAD.S_ITS ---
PROCEDURE: XR CHEST 1V INDICATIONS: chest pain TECHNIQUE: One view of the chest was acquired. COMPARISON: [facility], CR, XR CHEST 1V, 07/30/2024, 23:06. [facility], CR, XR CHEST 1V, 07/31/2024, 2:52. FINDINGS: Surgical changes and devices: Overlying monitoring device obscures portions of the right greater than left lung chavez. Lungs and pleura: Retrocardiac left basilar atelectasis. No pleural effusions or pneumothorax. Mediastinum: Mediastinal contours appear normal. Heart size is normal. Bones and chest wall: No suspicious bony lesions. Overlying soft tissues appear unremarkable. IMPRESSION: Retrocardiac left basilar atelectasis. Dictated by: Loc Mac M.D. on 08/11/2024 at 11:12 Approved by: Loc Mac M.D. on 08/11/2024 at 11:14
--- NOTE | 2024-08-11 10:52 | EKG_ITS ---
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
[2024-08-11 11:50] LABS: Add Manual Diff / Slide Review NO; Basophils Absolute Auto 100 /uL (0-100); Basophils Percent Auto 0.6 % (0-2); Eosinophils Absolute Auto 100 /uL (0-450); Hematocrit 39.8 % (41-53); Hemoglobin 13.7 g/dL (13.5-17.5); Lymphocytes Absolute Auto 1300 /uL (1100-4500); Lymphocytes Percent Auto 9.6 % (25-40); Mean Corpuscular HGB Conc 34.3 % (30-36); Mean Corpuscular Hemoglobin 32.3 PG (26-34); Mean Corpuscular Volume 94.2 fL (80-100); Monocytes Absolute Auto 1200 /uL (0-900); Neutrophils Absolute Auto 10500 /uL (1500-7000); Neutrophils Percent Auto 79.8 % (50-75); Platelet Count 406 X10^3/uL (150-400); Red Blood Cell Count 4.22 X10^6/uL (4.5-5.9); Red Cell Distribution Width 13.7 % (11.6-14.8); White Blood Cell Count 13.1 X10^3/uL (4.5-11.0)
[2024-08-11 12:01] LABS: Alanine Aminotransferase 29 IU/L (<50); Albumin 3.6 g/dL (3.5-5.0); Albumin Globulin Ratio 1.2 (1.0-2.8); Alkaline Phosphatase 98 U/L (38-126); Aspartate Aminotransferase 27 IU/L (17-59); BUN Creatinine Ratio 15.3 (6-22); Bilirubin Total 0.7 mg/dL (0.2-1.3); Blood Urea Nitrogen 13 mg/dL (9-20); Calcium 9.1 mg/dL (8.4-10.2); Carbon Dioxide 20 mmol/L (22-32); Chloride 100 mmol/L (98-107); Estimated Glomerular Filt Rate > 60 mL/min (>60); Glucose 210 mg/dL (70-99); HEMOLYSIS < 15 (0-50); Magnesium 1.5 mg/dL (1.6-2.3); Potassium 4.4 mmol/L (3.4-5.1); Sodium 131 mmol/L (137-145); Total Protein 6.6 g/dL (6.3-8.2)
[2024-08-11 12:10] LABS: Urine Volume 10mL (spun)
[2024-08-11 12:11] LABS: Bacteria Urine None Seen; Culture Indicated Urine Specimen Cultured; RBC Urine 0-1/HPF (0-5/HPF); Squamous Epithelial Cell Urine 0-1 /HPF (0-5/HPF); WBC Urine 5-10/HPF (0-5/HPF)
[2024-08-11 12:13] LABS: NT-proBNP (BNP-Adult 18+) 4210 pg/mL (<125)
[2024-08-11 12:14] LABS: Troponin I 0.151 ng/mL (0.01-0.034)
--- NOTE | 2024-08-11 14:30 | ED.GENADULT ---
HPI - General Adult <Stefani Khan MD - Last Filed: 08/14/24 05:35> General Chief complaint: Diabetic Problem Stated complaint: Diabetic related concerns, just d/c from [facility] Time Seen by Provider: 08/11/24 10:40 Source: patient Mode of arrival: Wheelchair History of Present Illness HPI narrative: 69-year-old gentleman comes in complaining that he is feeling worse, unable to fill medications, unclear about recent discharge instructions and believes he may need to be in a jail facility patient was seen on May 14 with a saddle pulmonary emboli, was transferred to [place] where he had a successful thrombectomy and was started on Eliquis. Presented again on May 30 VFib cardiac arrest with ROSC, transfer to [facility] in [place]. metabolic acidosis, cardiac arrest, significant cardiomyopathy, acute kidney injury and was felt to be in DKA.Ejection fraction is 18% w ith an echocardiogram done on the . On August 05 he underwent PTCA with stents placed in the left circumflex and left LAD was on a balloon pump Required postprocedure. Discharged home from [place] on the . He lives by himself, an extra neighbor was trying to assist. He was prescribed Lantus and Humalog insulin and his insurance declined to fill both of those. Previously his diabetes has been managed with oral medications only. He states that he is getting more weak, and concerned that he is not following appropriate discharge instructions due to lack of understanding and capacity. He complains that he has been short of breath not dramatically worse, he is not currently having any chest pain. Significant fatigue including significant exertional fatigue and orthopnea. No fevers or chills Related Data Home Medications Medication Instructions Recorded Confirmed dofetilide 500 mcg capsule 500 mcg PO BID ##0 10/26/15 06/20/24 (Tikosyn) apixaban 5 mg tablet (Eliquis) 5 mg PO BID 05/18/24 06/20/24 spironolactone 25 mg tablet 25 mg PO DAILY 05/18/24 06/20/24 losartan 25 mg tablet 25 mg PO BID 06/20/24 06/20/24 metoprolol succinate 25 mg 25 mg PO DAILY 06/20/24 06/20/24 tablet,extended release 24 hr Previous Rx's Medication Instructions Recorded atorvastatin 40 mg tablet 40 mg PO QPM #90 tabs 05/23/24 metformin 1,000 mg tablet 1,000 mg PO BIDCC #180 tabs 07/15/24 glipizide 10 mg tablet 10 mg PO BID #180 tabs 08/09/24 glipizide 10 mg tablet 10 mg PO BID #30 tabs 08/09/24 Allergies Allergy/AdvReac Type Severity Reaction Status Date / Time lisinopril AdvReac Cough Verified 08/11/24 10:40 Review of Systems <Stefani Khan MD - Last Filed: 08/14/24 05:35> Review of Systems Narrative: Pertinent positive and negative findings as per HPI Patient History <Stefani Khan MD - Last Filed: 08/14/24 05:35> Medical History (Updated 08/12/24 @ 09:10 by Kayden Cook MD) Ischemic cardiomyopathy Coronary artery disease Cardiac arrest with successful resuscitation Acute saddle pulmonary embolism with acute cor pulmonale (~05/2024) Paroxysmal atrial fibrillation (02/20/17) Cardiomyopathy (10/24/14) Elevated prostate specific antigen (PSA) (10/02/14) Type 2 diabetes mellitus without complication (10/02/14) Hyperlipidemia (04/29/11) Surgical History (Updated 08/12/24 @ 09:10 by Kayden Cook MD) S/P coronary artery stent placement (08/05/24) Social History marital status: number of children: 0 household members: none lives independently: Yes caregiver/support person: No housing: house pets and animals: Yes education level: other (Bachelors Degree) occupational status: other (Retired) current occupational exposures/hazards: No Previous occupational history: Various claudia/zoroastrianism: X.Non-specified special claudia needs: No travel history: recent (Back and forth to [facility].) leisure activities: hunting and fishing Smoking Status: Former smoker Tobacco: How many years used: 0 quit status: quit date established (Never smoked.) second hand exposure: No alcohol intake: current (Social drinker, rarely ) substance use type: marijuana (Occasionally.) Smoking Status: Former smoker alcohol intake frequency: 0-2 drinks per day Exam <Stefani Khan MD - Last Filed: 08/14/24 05:35> Initial Vital Signs Initial Vital Signs: Vital Signs Temperature 97.7 F 08/11/24 10:34 Pulse Rate 59 L 08/11/24 10:34 Respiratory Rate 18 08/11/24 10:34 Blood Pressure 128/74 08/11/24 10:34 Pulse Oximetry 97 08/11/24 10:34 Oxygen Delivery Method Room Air 08/11/24 10:34 General: chronically ill-appearing in no acute distress able to cooperate fully with exam and history HEENT: Moist mucous membranes, normal sclera with reactive pupils, Neck: +JVD, Respiratory: Lungs with minor bibasilar crackles, no wheezing Cardiac: Regular rate and rhythm no murmurs no bruits Abdomen: Soft, nontender, no rebound or guarding, no flank pain Skin: Warm and dry, no rashes Neurologic: Grossly neurologically intact with no obvious asymmetries or abnormalities Extremities: No trauma, 1+ bilateral lower extremity edema Psych: Cooperative, appropriate insight and affect <Alli Jose MD - Last Filed: 08/12/24 01:10> Initial Vital Signs Initial Vital Signs: Vital Signs Temperature 97.7 F 08/11/24 10:34 Pulse Rate 59 L 08/11/24 10:34 Respiratory Rate 18 08/11/24 10:34 Blood Pressure 128/74 08/11/24 10:34 Pulse Oximetry 97 08/11/24 10:34 Oxygen Delivery Method Room Air 08/11/24 10:34 Course <Stefani Khan MD - Last Filed: 08/14/24 05:35> Orders Ordered: Discontinued Medications Apixaban (Apixaban 5 Mg Tablet) 5 mg PO BID [facility] Last Admin: 08/11/24 20:52 Dose: 5 mg Documented By: ETTA Aspirin (Aspirin Ec 81 Mg Tablet) 81 mg PO DAILY [facility] Furosemide (Furosemide 40 Mg/4 Ml Vial) 40 mg IV NOW ONE Stop: 08/11/24 16:09 Last Admin: 08/11/24 16:13 Dose: 40 mg Documented By: ETTA Losartan Potassium (Losartan 25 Mg Tablet) 25 mg PO DAILY [facility] Metoprolol Tartrate (Metoprolol Ir 25 Mg Tablet) 37.5 mg PO BID [facility] Last Admin: 08/11/24 20:52 Dose: 37.5 mg Documented By: ETTA Spironolactone (Spironolactone 12.5 Mg Tablet) 12.5 mg PO NOW ONE Stop: 08/11/24 16:22 Last Admin: 08/11/24 16:41 Dose: 12.5 mg Documented By: ETTA Vital Signs Vital signs: Vital Signs - 8 hr 08/11/24 17:30 08/11/24 17:30 08/11/24 18:00 Pulse Rate 76 75 Respiratory Rate 27 H 25 H Blood Pressure 128/79 Pulse Oximetry 96 96 08/11/24 18:00 08/11/24 18:30 08/11/24 18:30 Pulse Rate 75 Respiratory Rate 23 Blood Pressure 129/77 138/86 Pulse Oximetry 96 08/11/24 19:00 08/11/24 19:00 08/11/24 19:30 Pulse Rate 76 Respiratory Rate 20 Blood Pressure 126/79 131/79 Pulse Oximetry 97 08/11/24 19:30 08/11/24 20:00 08/11/24 20:00 Pulse Rate 75 76 Respiratory Rate 18 19 Blood Pressure 139/85 Pulse Oximetry 96 98 08/11/24 20:30 08/11/24 20:30 08/11/24 21:00 Pulse Rate 75 Respiratory Rate 20 Blood Pressure 145/85 H 154/85 H Pulse Oximetry 08/11/24 21:00 08/11/24 21:30 08/11/24 21:30 Pulse Rate 75 73 Respiratory Rate 20 20 Blood Pressure 128/79 Pulse Oximetry 08/11/24 22:00 08/11/24 22:00 08/11/24 22:30 Pulse Rate 71 Respiratory Rate 18 Blood Pressure 129/83 135/78 Pulse Oximetry 08/11/24 22:30 08/11/24 23:00 08/11/24 23:00 Pulse Rate 72 72 Respiratory Rate 21 20 Blood Pressure 143/89 H Pulse Oximetry 08/11/24 23:30 08/11/24 23:30 Pulse Rate 71 Respiratory Rate 16 Blood Pressure 114/69 Pulse Oximetry <Alli Jose MD - Last Filed: 08/12/24 01:10> Orders Ordered: Discontinued Medications Apixaban (Apixaban 5 Mg Tablet) 5 mg PO BID [facility] Last Admin: 08/11/24 20:52 Dose: 5 mg Documented By: ETTA Aspirin (Aspirin Ec 81 Mg Tablet) 81 mg PO DAILY [facility] Furosemide (Furosemide 40 Mg/4 Ml Vial) 40 mg IV NOW ONE Stop: 08/11/24 16:09 Last Admin: 08/11/24 16:13 Dose: 40 mg Documented By: ETTA Losartan Potassium (Losartan 25 Mg Tablet) 25 mg PO DAILY [facility] Metoprolol Tartrate (Metoprolol Ir 25 Mg Tablet) 37.5 mg PO BID [facility] Last Admin: 08/11/24 20:52 Dose: 37.5 mg Documented By: ETTA Spironolactone (Spironolactone 12.5 Mg Tablet) 12.5 mg PO NOW ONE Stop: 08/11/24 16:22 Last Admin: 08/11/24 16:41 Dose: 12.5 mg Documented By: ETTA Vital Signs Vital signs: Vital Signs - 8 hr 08/11/24 17:30 08/11/24 17:30 08/11/24 18:00 Pulse Rate 76 75 Respiratory Rate 27 H 25 H Blood Pressure 128/79 Pulse Oximetry 96 96 08/11/24 18:00 08/11/24 18:30 08/11/24 18:30 Pulse Rate 75 Respiratory Rate 23 Blood Pressure 129/77 138/86 Pulse Oximetry 96 08/11/24 19:00 08/11/24 19:00 08/11/24 19:30 Pulse Rate 76 Respiratory Rate 20 Blood Pressure 126/79 131/79 Pulse Oximetry 97 08/11/24 19:30 08/11/24 20:00 08/11/24 20:00 Pulse Rate 75 76 Respiratory Rate 18 19 Blood Pressure 139/85 Pulse Oximetry 96 98 08/11/24 20:30 08/11/24 20:30 08/11/24 21:00 Pulse Rate 75 Respiratory Rate 20 Blood Pressure 145/85 H 154/85 H Pulse Oximetry 08/11/24 21:00 08/11/24 21:30 08/11/24 21:30 Pulse Rate 75 73 Respiratory Rate 20 20 Blood Pressure 128/79 Pulse Oximetry 08/11/24 22:00 08/11/24 22:00 08/11/24 22:30 Pulse Rate 71 Respiratory Rate 18 Blood Pressure 129/83 135/78 Pulse Oximetry 08/11/24 22:30 08/11/24 23:00 08/11/24 23:00 Pulse Rate 72 72 Respiratory Rate 21 20 Blood Pressure 143/89 H Pulse Oximetry 08/11/24 23:30 08/11/24 23:30 Pulse Rate 71 Respiratory Rate 16 Blood Pressure 114/69 Pulse Oximetry Medical Decision Making <Stefani Khan MD - Last Filed: 08/14/24 05:35> Lab Data 08/11/24 11:35 08/11/24 11:35 Labs: Lab Results 08/11/24 08/11/24 08/11/24 Range/Units 11:35 12:00 13:55 WBC 13.1 H (4.5-11.0) X10^3/uL RBC 4.22 L (4.5-5.9) X10^6/uL Hgb 13.7 (13.5-17.5) g/dL Hct 39.8 L (41-53) % MCV 94.2 (80-100) fL MCH 32.3 (26-34) PG MCHC 34.3 (30-36) % RDW 13.7 (11.6-14.8) % Plt Count 406 H (150-400) X10^3/uL Neut % (Auto) 79.8 H (50-75) % Lymph % (Auto) 9.6 L (25-40) % [place] % (Auto) 9.0 (3-14) % Eos % (Auto) 1.0 L (2-4) % Baso % (Auto) 0.6 (0-2) % Neut # (Auto) 08564 H (9257-2844) /uL Lymph # (Auto) 1300 (9541-4875) /uL [place] # (Auto) 1200 H (0-900) /uL Eos # (Auto) 100 (0-450) /uL Baso # (Auto) 100 (0-100) /uL Sodium 131 L (137-145) mmol/L Potassium 4.4 (3.4-5.1) mmol/L Chloride 100 (98-107) mmol/L Carbon Dioxide 20 L (22-32) mmol/L BUN 13 (9-20) mg/dL Creatinine 0.85 (0.66-1.25) mg/dL Estimated GFR > 60 (>60) mL/min BUN/Creatinine Ratio 15.3 (6-22) Glucose 210 H (70-99) mg/dL Calcium 9.1 (8.4-10.2) mg/dL Magnesium 1.5 L (1.6-2.3) mg/dL Total Bilirubin 0.7 (0.2-1.3) mg/dL AST 27 (17-59) IU/L ALT 29 (<50) IU/L Alkaline Phosphatase 98 (38-126) U/L Troponin I 0.151 H* 0.161 H* (0.01-0.034) ng/mL NT-Pro-B Natriuret Pep 4210 H (<125) pg/mL Total Protein 6.6 (6.3-8.2) g/dL Albumin 3.6 (3.5-5.0) g/dL Globulin 3.0 (1.7-4.1) g/dL Albumin/Globulin Ratio 1.2 (1.0-2.8) Urine RBC 0-1/hpf (0-5/HPF) Urine WBC 5-10/hpf H (0-5/HPF) Ur Squamous Epith Cells 0-1 /hpf (0-5/HPF) Urine Bacteria None seen (None) Ur Culture Indicated? Specimen cultured Vol Urine Centrifuged 10ml (spun) 08/11/ Range/Units 19:10 WBC (4.5-11.0) X10^3/uL RBC (4.5-5.9) X10^6/uL Hgb (13.5-17.5) g/dL Hct (41-53) % MCV (80-100) fL MCH (26-34) PG MCHC (30-36) % RDW (11.6-14.8) % Plt Count (150-400) X10^3/uL Neut % (Auto) (50-75) % Lymph % (Auto) (25-40) % [place] % (Auto) (3-14) % Eos % (Auto) (2-4) % Baso % (Auto) (0-2) % Neut # (Auto) (8836-8865) /uL Lymph # (Auto) (3354-6606) /uL [place] # (Auto) (0-900) /uL Eos # (Auto) (0-450) /uL Baso # (Auto) (0-100) /uL Sodium (137-145) mmol/L Potassium (3.4-5.1) mmol/L Chloride (98-107) mmol/L Carbon Dioxide (22-32) mmol/L BUN (9-20) mg/dL Creatinine (0.66-1.25) mg/dL Estimated GFR (>60) mL/min BUN/Creatinine Ratio (6-22) Glucose (70-99) mg/dL Calcium (8.4-10.2) mg/dL Magnesium (1.6-2.3) mg/dL Total Bilirubin (0.2-1.3) mg/dL AST (17-59) IU/L ALT (<50) IU/L Alkaline Phosphatase (38-126) U/L Troponin I 0.134 H* (0.01-0.034) ng/mL NT-Pro-B Natriuret Pep (<125) pg/mL Total Protein (6.3-8.2) g/dL Albumin (3.5-5.0) g/dL Globulin (1.7-4.1) g/dL Albumin/Globulin Ratio (1.0-2.8) Urine RBC (0-5/HPF) Urine WBC (0-5/HPF) Ur Squamous Epith Cells (0-5/HPF) Urine Bacteria (None) Ur Culture Indicated? Vol Urine Centrifuged Point of Care Testing Glucose POC 250 Urine Dip Bedside Urine Glucose Negative Bedside Urine Bilirubin - Negative Bedside Urine Ketone - Negative Urine Specific [place] 1.015 Bedside Urine Occult Blood + Bedside Urine pH 6.0 Bedside Urine Protein +/- 15 Bedside Urine Urobilinogen - Negative Bedside Urine Nitrite - Negative Bedside Urine Leukocytes ++ 125 Esterase Point of care testing: Point of Care Testing Glucose POC 250 Urine Dip Bedside Urine Glucose Negative Bedside Urine Bilirubin - Negative Bedside Urine Ketone - Negative Urine Specific [place] 1.015 Bedside Urine Occult Blood + Bedside Urine pH 6.0 Bedside Urine Protein +/- 15 Bedside Urine Urobilinogen - Negative Bedside Urine Nitrite - Negative Bedside Urine Leukocytes ++ 125 Esterase [facility] Narrative Additional Information: CC:Weakness, dyspnea, inability to care for self after discharge from hospital on August 08 Complicating co-morbidities: lives independently, cardiac arrest on July 30 with return of circulation, post stenting, discharged from [facility] on August 08. Apparently has been discussion regarding jail home on discharge her home he was eventually discharged home. He lives independently, he is too weak to get up and take care of himself, was unable to feel some of his medications has multiple questions about his diabetic medications, his next-door neighbor voluntary to bring him home from the hospital but is not able to care for him in the home. He is not complaining of overt chest pain at this time he has increasing lower extremity edema and dyspnea Data collected from: patient Social determinants of health that may influence the patients condition: Medical records reviewed: care is reviewed with on-call Cardiology Dr. Nuno in [place]. Please see brief summary and HPI above. We discussed his elevated troponins, it is unclear if this is new elevation or baseline elevation. Patient currently is on Plavix aspirin and Eliquis Differential considered: NSTEMI, continued elevated troponin after recent cardiac arrest/ stenting/ intra-aortic balloon pump, congestive heart failure, failure to thrive with failed recent hospital discharge Exam documented above, pertinent findings include: patient is alert, states that he feels like shit, in full sentences with no respiratory distress while stating this. His minor basilar crackles, JVD, mild lower extremity edema. Abdomen is soft. Lab Test results independently reviewed as above. Pertinent findings: Initial troponin is elevated at 0.151 and repeat is 0.161 unclear if this is trending down, trending up or his baseline chemistries are fairly unremarkable. His glucose is 210. He does not have an anion gap, renal function is appropriate, electrolytes are appropriate BNP is elevated at 4210 chest x-ray shows retrocardiac left basilar atelectasis. Independently reviewed EKG: Imaging studies independently reviewed: Consultations:Dr Nuno, Cardiology [facility] Dr Cook, PCP at [place] for discussion of admit Treatments: Lasix outpatient medications are ordered Re-evaluations: Discussion: 69-year-old gentleman recent VFib arrest with Ross with intra-aortic balloon pump, subsequent stenting to the left circ, left anterior descending, ejection fraction 18%, currently has a life vest in place with apparent outpatient plans to return for pacemaker and AICD placement. Too weak to take care of himself at home. Aside from the injectable insulin he is taking all medications as prescribed. Discussing with Cardiology at [place] possibility of feeling worse with the significantly higher dose of his Lipitor. When discussing with his primary care physician with possible admission [facility], with the elevated troponin that is slightly increasing all the recent cardiac events and no inpatient cardiac consultation he declined admission. Phone call to [facility], there quite full but transfer center said there were discharge is coming up. Will call back to see if they may have capacity to accept this gentleman for elevated troponin, congestive heart failure, failure to thrive with failed discharge home who likely would benefit from jail placement that was initially declined with discharge on the . <Alli Jose MD - Last Filed: 08/12/24 01:10> Lab Data Labs: Lab Results 08/11/24 08/11/24 08/11/24 Range/Units 11:35 12:00 13:55 WBC 13.1 H (4.5-11.0) X10^3/uL RBC 4.22 L (4.5-5.9) X10^6/uL Hgb 13.7 (13.5-17.5) g/dL Hct 39.8 L (41-53) % MCV 94.2 (80-100) fL MCH 32.3 (26-34) PG MCHC 34.3 (30-36) % RDW 13.7 (11.6-14.8) % Plt Count 406 H (150-400) X10^3/uL Neut % (Auto) 79.8 H (50-75) % Lymph % (Auto) 9.6 L (25-40) % [place] % (Auto) 9.0 (3-14) % Eos % (Auto) 1.0 L (2-4) % Baso % (Auto) 0.6 (0-2) % Neut # (Auto) 59308 H (9787-2200) /uL Lymph # (Auto) 1300 (7934-8058) /uL [place] # (Auto) 1200 H (0-900) /uL Eos # (Auto) 100 (0-450) /uL Baso # (Auto) 100 (0-100) /uL Sodium 131 L (137-145) mmol/L Potassium 4.4 (3.4-5.1) mmol/L Chloride 100 (98-107) mmol/L Carbon Dioxide 20 L (22-32) mmol/L BUN 13 (9-20) mg/dL Creatinine 0.85 (0.66-1.25) mg/dL Estimated GFR > 60 (>60) mL/min BUN/Creatinine Ratio 15.3 (6-22) Glucose 210 H (70-99) mg/dL Calcium 9.1 (8.4-10.2) mg/dL Magnesium 1.5 L (1.6-2.3) mg/dL Total Bilirubin 0.7 (0.2-1.3) mg/dL AST 27 (17-59) IU/L ALT 29 (<50) IU/L Alkaline Phosphatase 98 (38-126) U/L Troponin I 0.151 H* 0.161 H* (0.01-0.034) ng/mL NT-Pro-B Natriuret Pep 4210 H (<125) pg/mL Total Protein 6.6 (6.3-8.2) g/dL Albumin 3.6 (3.5-5.0) g/dL Globulin 3.0 (1.7-4.1) g/dL Albumin/Globulin Ratio 1.2 (1.0-2.8) Urine RBC 0-1/hpf (0-5/HPF) Urine WBC 5-10/hpf H (0-5/HPF) Ur Squamous Epith Cells 0-1 /hpf (0-5/HPF) Urine Bacteria None seen (None) Ur Culture Indicated? Specimen cultured Vol Urine Centrifuged 10ml (spun) 08/11/24 Range/Units 19:10 WBC (4.5-11.0) X10^3/uL RBC (4.5-5.9) X10^6/uL Hgb (13.5-17.5) g/dL Hct (41-53) % MCV (80-100) fL MCH (26-34) PG MCHC (30-36) % RDW (11.6-14.8) % Plt Count (150-400) X10^3/uL Neut % (Auto) (50-75) % Lymph % (Auto) (25-40) % [place] % (Auto) (3-14) % Eos % (Auto) (2-4) % Baso % (Auto) (0-2) % Neut # (Auto) (1513-0084) /uL Lymph # (Auto) (3850-4587) /uL [place] # (Auto) (0-900) /uL Eos # (Auto) (0-450) /uL Baso # (Auto) (0-100) /uL Sodium (137-145) mmol/L Potassium (3.4-5.1) mmol/L Chloride (98-107) mmol/L Carbon Dioxide (22-32) mmol/L BUN (9-20) mg/dL Creatinine (0.66-1.25) mg/dL Estimated GFR (>60) mL/min BUN/Creatinine Ratio (6-22) Glucose (70-99) mg/dL Calcium (8.4-10.2) mg/dL Magnesium (1.6-2.3) mg/dL Total Bilirubin (0.2-1.3) mg/dL AST (17-59) IU/L ALT (<50) IU/L Alkaline Phosphatase (38-126) U/L Troponin I 0.134 H* (0.01-0.034) ng/mL NT-Pro-B Natriuret Pep (<125) pg/mL Total Protein (6.3-8.2) g/dL Albumin (3.5-5.0) g/dL Globulin (1.7-4.1) g/dL Albumin/Globulin Ratio (1.0-2.8) Urine RBC (0-5/HPF) Urine WBC (0-5/HPF) Ur Squamous Epith Cells (0-5/HPF) Urine Bacteria (None) Ur Culture Indicated? Vol Urine Centrifuged Point of Care Testing Glucose POC 250 Urine Dip Bedside Urine Glucose Negative Bedside Urine Bilirubin - Negative Bedside Urine Ketone - Negative Urine Specific [place] 1.015 Bedside Urine Occult Blood + Bedside Urine pH 6.0 Bedside Urine Protein +/- 15 Bedside Urine Urobilinogen - Negative Bedside Urine Nitrite - Negative Bedside Urine Leukocytes ++ 125 Esterase Point of care testing: Point of Care Testing Glucose POC 250 Urine Dip Bedside Urine Glucose Negative Bedside Urine Bilirubin - Negative Bedside Urine Ketone - Negative Urine Specific [place] 1.015 Bedside Urine Occult Blood + Bedside Urine pH 6.0 Bedside Urine Protein +/- 15 Bedside Urine Urobilinogen - Negative Bedside Urine Nitrite - Negative Bedside Urine Leukocytes ++ 125 Esterase ECG Data Interpretation: Patient's EKG appears to show atrial flutter with 4-1 block, no significant ST segment elevation, depression at this time. MDM Narrative Additional Information: CC:Weakness, dyspnea, inability to care for self after discharge from hospital on August 08 Complicating co-morbidities: lives independently, cardiac arrest on July 30 with return of circulation, post stenting, discharged from [facility] on August 08. Apparently has been discussion regarding jail home on discharge her home he was eventually discharged home. He lives independently, he is too weak to get up and take care of himself, was unable to feel some of his medications has multiple questions about his diabetic medications, his next-door neighbor voluntary to bring him home from the hospital but is not able to care for him in the home. He is not complaining of overt chest pain at this time he has increasing lower extremity edema and dyspnea Data collected from: patient Social determinants of health that may influence the patients condition: Medical records reviewed: care is reviewed with on-call Cardiology Dr. Nuno in [place]. Please see brief summary and HPI above. We discussed his elevated troponins, it is unclear if this is new elevation or baseline elevation. Patient currently is on Plavix aspirin and Eliquis Differential considered: NSTEMI, continued elevated troponin after recent cardiac arrest/ stenting/ intra-aortic balloon pump, congestive heart failure, failure to thrive with failed recent hospital discharge Exam documented above, pertinent findings include: patient is alert, states that he feels like shit, in full sentences with no respiratory distress while stating this. His minor basilar crackles, JVD, mild lower extremity edema. Abdomen is soft. Lab Test results independently reviewed as above. Pertinent findings: Initial troponin is elevated at 0.151 and repeat is 0.161 unclear if this is trending down, trending up or his baseline chemistries are fairly unremarkable. His glucose is 210. He does not have an anion gap, renal function is appropriate, electrolytes are appropriate BNP is elevated at 4210 chest x-ray shows retrocardiac left basilar atelectasis. Independently reviewed EKG: Imaging studies independently reviewed: Consultations:Dr Nuno, Cardiology [facility] Dr Cook, PCP at [place] for discussion of admit Treatments: Lasix outpatient medications are ordered Re-evaluations: Discussion: 69-year-old gentleman recent VFib arrest with Ross with intra-aortic balloon pump, subsequent stenting to the left circ, left anterior descending, ejection fraction 18%, currently has a life vest in place with apparent outpatient plans to return for pacemaker and AICD placement. Too weak to take care of himself at home. Aside from the injectable insulin he is taking all medications as prescribed. Discussing with Cardiology at [facility] possibility of feeling worse with the significantly higher dose of his Lipitor. When discussing with his primary care physician with possible admission [facility], with the elevated troponin that is slightly increasing all the recent cardiac events and no inpatient cardiac consultation he declined admission. Phone call to [facility], there quite full but transfer center said there were discharge is coming up. Will call back to see if they may have capacity to accept this gentleman for elevated troponin, congestive heart failure, failure to thrive with failed discharge home who likely would benefit from jail placement that was initially declined with discharge on the . Discussed the case with Dr. Newell at [facility] who accepts the patient for admission for ongoing management of heart failure, elevated troponins, failure to thrive and ultimate disposition Discharge Plan Departure Patient Disposition: [facility] Clinical Impression: Elevated troponin, Atrial fibrillation/flutter Prescriptions: No Action dofetilide [Tikosyn] 500 MCG capsule 500 mcg PO BID Qty: 0 metformin 1,000 mg tablet 1,000 mg PO BIDCC Qty: 180 1RF glipizide 10 mg tablet 10 mg PO BID Qty: 180 3RF glipizide 10 mg tablet 10 mg PO BID Qty: 30 0RF Eliquis 5 mg tablet 5 mg PO BID Rx Instructions: Take (2 tablets) 10 mg total BID for next 6 days then decrease to 1 tablet (5mg) total BID. spironolactone 25 mg tablet 25 mg PO DAILY metoprolol succinate 25 mg tablet extended release 24 hr 25 mg PO DAILY losartan 25 mg tablet 25 mg PO BID atorvastatin 40 mg tablet 40 mg PO QPM Qty: 90 3RF Referrals: Kayden Cook MD [Primary Care Provider] -
[2024-08-11 14:31] LABS: Troponin I 0.161 ng/mL (0.01-0.034)
[2024-08-11] MEDS: FUROSEMIDE 40 MG/4 ML VIAL IV (16:13)
[2024-08-11] MEDS: SPIRONOLACTONE 12.5 MG TABLET PO (16:41)
[2024-08-11 19:52] LABS: Troponin I 0.134 ng/mL (0.01-0.034)
[2024-08-11] MEDS: METOPROLOL IR 25 MG TABLET 37.5 MG PO (20:52)
[2024-08-11] MEDS: APIXABAN 5 MG TABLET PO (20:52)
[2024-08-12] VITALS (10 sets, daily range): BP systolic 139–146; BP diastolic 77–83; PULSE 71–74; RESP 14–24; TEMP 36.4; O2SAT 95–96
== END 2024-08-12 04:06 | disposition short-term general hospital (02) ==
PROVIDERS: Emergency Medicine; Emergency Provider Emergency Medicine; Family Provider Internal Medicine; PCP Internal Medicine
DX: I48.91 Unspecified atrial fibrillation (principal); R79.89 Other specified abnormal findings of blood chemistry; R06.02 Shortness of breath
CPT/HCPCS: 36415; 71045; 80053; 81003; 81015; 82962; 83735; 83880; 84484; 85025; 87086; 93005; 96374; 99284; J1938

== ENCOUNTER 2024-08-19 12:26 | Emergency (ER) | payer MEDICARE, OTHER, SELFPAY ==
[2024-08-19] VITALS (9 sets, daily range): BP systolic 112–150; BP diastolic 11–99; PULSE 55–92; RESP 16–25; TEMP 36; O2SAT 98–100; BMI 24.7
--- NOTE | 2024-08-19 13:26 | ED.GENADULT ---
HPI - General Adult General Chief complaint: Diabetic Problem Stated complaint: High Blood Sugar Time Seen by Provider: 08/19/24 13:08 History of Present Illness HPI narrative: 69-year-old gentleman history of atrial fibrillation saddle pulmonary embolus May 2024 currently on anticoagulation dilated cardiomyopathy high blood pressure diabetes dyslipidemia had cardiac arrest status post Rosc now wearing LifeVest discharged from [facility] recently started on insulin injectable previously on metformin and glipizide seen by home health nurse earlier today sent over here for further evaluation with elevated sugars in the 400-500. Patient thought the home health nurse was able to educate him on how to use injectable insulin but otherwise is asymptomatic. Other than what is stated 14 point review of system is negative. Related Data Home Medications ?Medication ?Instructions ?Recorded ?Confirmed dofetilide 500 mcg capsule 500 mcg PO BID ##0 10/26/15 06/20/24 (Tikosyn) apixaban 5 mg tablet (Eliquis) 5 mg PO BID 05/18/24 06/20/24 spironolactone 25 mg tablet 25 mg PO DAILY 05/18/24 06/20/24 losartan 25 mg tablet 25 mg PO BID 06/20/24 06/20/24 metoprolol succinate 25 mg 25 mg PO DAILY 06/20/24 06/20/24 tablet,extended release 24 hr Previous Rx's ?Medication ?Instructions ?Recorded atorvastatin 40 mg tablet 40 mg PO QPM #90 tabs 05/23/24 metformin 1,000 mg tablet 1,000 mg PO BIDCC #180 tabs 07/15/24 glipizide 10 mg tablet 10 mg PO BID #180 tabs 08/09/24 glipizide 10 mg tablet 10 mg PO BID #30 tabs 08/09/24 Allergies Allergy/AdvReac Type Severity Reaction Status Date / Time lisinopril AdvReac Cough Verified 08/19/24 12:24 Review of Systems Review of Systems ROS Unobtainable: All systems reviewed & are unremarkable except as noted in HPI and below Patient History Medical History (Updated 08/19/24 @ 15:40 by Kayden Tucker DO) Ischemic cardiomyopathy Coronary artery disease Cardiac arrest with successful resuscitation Acute saddle pulmonary embolism with acute cor pulmonale (~05/2024) Paroxysmal atrial fibrillation (02/20/17) Cardiomyopathy (10/24/14) Elevated prostate specific antigen (PSA) (10/02/14) Type 2 diabetes mellitus without complication (10/02/14) Hyperlipidemia (04/29/11) Surgical History (Updated 08/12/24 @ 09:10 by Kayden Cook MD) S/P coronary artery stent placement (08/05/24) Social History marital status: number of children: 0 household members: none lives independently: Yes caregiver/support person: No housing: house pets and animals: Yes education level: other (Bachelors Degree) occupational status: other (Retired) current occupational exposures/hazards: No Previous occupational history: Various claudia/orthodox: X.Non-specified special claudia needs: No travel history: recent (Back and forth to [facility] leisure activities: hunting and fishing Tobacco: How many years used: 0 quit status: quit date established (Never smoked.) second hand exposure: No alcohol intake: current (Social drinker, rarely ) substance use type: marijuana (Occasionally.) alcohol intake frequency: 0-2 drinks per day Exam Narrative Exam Narrative: GENERAL: [69] year old patient appears stated age. Well-developed patient, in mild distress. HEAD: Atraumatic. Normocephalic. EYES: Pupils equal round and reactive. Extraocular motions intact. No scleral icterus. No injection or drainage. ENT: Nose without bleeding, purulent drainage. Throat without erythema, tonsillar hypertrophy or exudate. Airway patent. NECK: Trachea midline. Non tender CARDIOVASCULAR: Regular rate and rhythm without murmurs, gallops, or rubs. RESPIRATORY: Clear to auscultation. Breath sounds equal bilaterally. No wheezes, rales, or rhonchi. GASTROINTESTINAL: Abdomen soft, non-tender, nondistended. EXTREMITIES: No edema or joint tenderness. BACK: Nontender without deformity or crepitance. No flank tenderness. NEURO: AOx3. SKIN: No rash or erythema of visible areas Initial Vital Signs Initial Vital Signs: Vital Signs Temperature 96.8 F L 08/19/24 12:24 Pulse Rate 55 L 08/19/24 12:24 Respiratory Rate 16 08/19/24 12:24 Blood Pressure 145/99 H 08/19/24 12:24 Pulse Oximetry 99 08/19/24 12:24 Oxygen Delivery Method Room Air 08/19/24 12:24 Course Orders Ordered: ED Orders 08/19/24 12:35 Complete Blood Count AUTO DIFF Stat Comprehensive Metabolic Panel Stat Lipase Stat Magnesium Stat NT-proBNP (BNP-Adult 18+) Stat PTT Partial Thromboplastin Mark Stat Prothrombin Time INR Stat Troponin & CK Cardiac Panel Stat EKG-12 Lead Stat Discontinued Medications Aspirin (Aspirin 81 Mg Chew Tab) 324 mg PO NOW ONE Stop: 08/19/24 12:36 Last Admin: 08/19/24 12:41 Dose: Not Given Documented By: CTS Vital Signs Vital signs: Vital Signs - 8 hr 08/19/24 12:24 Temperature 96.8 F L Pulse Rate 55 L Respiratory Rate 16 Blood Pressure 145/99 H Pulse Oximetry 99 Oxygen Delivery Method Room Air Medical Decision Making Lab Data Labs: Point of Care Testing Glucose POC 354 Point of care testing: Point of Care Testing Glucose POC 354 MDM Narrative Medical decision making narrative: All lab work, vital signs, nurse triage note, medication list, previous ER visits all reviewed. First set troponin negative blood sugar 350 sodium 134 potassium 4.6 chloride 99 CO2 22. Patient given 1 L normal saline and 8 units of regular insulin here. Differential diagnosis includes diabetic education, noncompliance with medicine, DKA. No one was available for diabetic education here but diabetic education counseling office number given to patient to call on Thursday and he has an appointment on Thursday with his PCP at 10:30 a.m. patient for now will continue to take metformin and glipizide until seen by PCP. Discharge Plan Departure Patient Disposition: Home Clinical Impression: Acute hyperglycemia Instructions: DI for Diabetes Type 2 Activity Restrictions/Additional Instructions: Return with new or worsening symptoms. Call diabetic education counseling office phone number given to you on Thursday. Follow up with PCP appointment Dr. Cook on Thursday at 10:30 a.m. Continue taking metformin and glipizide until seen by PCP or any other advice given by Diabetic education office on Thursday. Prescriptions: No Action dofetilide [Tikosyn] 500 MCG capsule 500 mcg PO BID Qty: 0 metformin 1,000 mg tablet 1,000 mg PO BIDCC Qty: 180 1RF glipizide 10 mg tablet 10 mg PO BID Qty: 180 3RF glipizide 10 mg tablet 10 mg PO BID Qty: 30 0RF Eliquis 5 mg tablet 5 mg PO BID Rx Instructions: Take (2 tablets) 10 mg total BID for next 6 days then decrease to 1 tablet (5mg) total BID. spironolactone 25 mg tablet 25 mg PO DAILY metoprolol succinate 25 mg tablet extended release 24 hr 25 mg PO DAILY losartan 25 mg tablet 25 mg PO BID atorvastatin 40 mg tablet 40 mg PO QPM Qty: 90 3RF Referrals: Kayden Cook MD [Primary Care Provider, Internal Medicine] Stand Alone Forms: Patient Portal/API
[2024-08-19 13:46] LABS: INR 1.2 (0.9-1.3); Prothrombin Time 13.2 SECONDS (9.4-12.5)
[2024-08-19 13:47] LABS: Add Manual Diff / Slide Review NO; Basophils Absolute Auto 100 /uL (0-100); Eosinophils Absolute Auto 100 /uL (0-450); Eosinophils Percent Auto 1.5 % (2-4); Hematocrit 40.5 % (41-53); Hemoglobin 13.5 g/dL (13.5-17.5); Lymphocytes Absolute Auto 1400 /uL (1100-4500); Lymphocytes Percent Auto 20.1 % (25-40); Mean Corpuscular HGB Conc 33.2 % (30-36); Mean Corpuscular Volume 96.2 fL (80-100); Monocytes Absolute Auto 800 /uL (0-900); Monocytes Percent Auto 11.8 % (3-14); Neutrophils Absolute Auto 4400 /uL (1500-7000); Neutrophils Percent Auto 65.6 % (50-75); Platelet Count 422 X10^3/uL (150-400); Red Blood Cell Count 4.21 X10^6/uL (4.5-5.9); Red Cell Distribution Width 13.5 % (11.6-14.8); White Blood Cell Count 6.7 X10^3/uL (4.5-11.0)
[2024-08-19 13:49] LABS: PTT Partial Thromboplastin Tim 36 SECONDS (25.1-36.5)
[2024-08-19 13:52] LABS: Alanine Aminotransferase 32 IU/L (<50); Albumin Globulin Ratio 1.2 (1.0-2.8); Alkaline Phosphatase 92 U/L (38-126); Aspartate Aminotransferase 25 IU/L (17-59); BUN Creatinine Ratio 19.2 (6-22); Bilirubin Total 0.8 mg/dL (0.2-1.3); Blood Urea Nitrogen 20 mg/dL (9-20); Calcium 9.3 mg/dL (8.4-10.2); Carbon Dioxide 22 mmol/L (22-32); Chloride 99 mmol/L (98-107); Creatine Kinase 49 U/L (55-170); Estimated Glomerular Filt Rate > 60 mL/min (>60); Globulin 3.3 g/dL (1.7-4.1); Glucose 350 mg/dL (70-99); HEMOLYSIS < 15 (0-50); Lipase 53 U/L (23-300); Magnesium 1.7 mg/dL (1.6-2.3); Potassium 4.6 mmol/L (3.4-5.1); Sodium 134 mmol/L (137-145); Total Protein 7.3 g/dL (6.3-8.2)
[2024-08-19] MEDS: INSULIN REGULAR 100 UNIT/ML 3 ML VIAL 8 UNIT IV (13:55)
[2024-08-19] MEDS: SODIUM CHLORIDE 0.9% 500 ML 1000 ML IV (13:58)
[2024-08-19 14:03] LABS: NT-proBNP (BNP-Adult 18+) 1390 pg/mL (<125); Troponin I 0.034 ng/mL (0.01-0.034)
== END 2024-08-19 15:57 | disposition home or self-care (01) ==
PROVIDERS: Emergency Provider Family Medicine; Family Provider Internal Medicine; PCP Internal Medicine
DX: E11.65 Type 2 diabetes mellitus with hyperglycemia (principal); I25.2 Old myocardial infarction; Z79.01 Long term (current) use of anticoagulants
CPT/HCPCS: 36415; 80053; 82550; 82962; 83690; 83735; 83880; 84484; 85025; 85610; 85730; 96361; 96374; 99284

== ENCOUNTER → 2024-09-21 11:55 | Outpatient (CLI) | payer MEDICARE, OTHER, SELFPAY ==
[2024-09-21 12:51] LABS: Alanine Aminotransferase 14 IU/L (<50); Albumin 4.2 g/dL (3.5-5.0); Albumin Globulin Ratio 1.5 (1.0-2.8); Alkaline Phosphatase 56 U/L (38-126); Blood Urea Nitrogen 14 mg/dL (9-20); Calcium 9.6 mg/dL (8.4-10.2); Carbon Dioxide 24 mmol/L (22-32); Chloride 103 mmol/L (98-107); Cholesterol 124 mg/dL (140-199); Estimated Glomerular Filt Rate > 60 mL/min (>60); Globulin 2.8 g/dL (1.7-4.1); Glucose 144 mg/dL (70-99); HDL Cholesterol 45 mg/dL (40-60); HEMOLYSIS < 15 (0-50); Potassium 4.8 mmol/L (3.4-5.1); Sodium 136 mmol/L (137-145); Total Protein 7.0 g/dL (6.3-8.2); Triglycerides 83 mg/dL (35-150)
[2024-09-21 13:31] LABS: Hemoglobin A1C% w Est Avg Glu 8.8 % (4.0-6.0)
== END ==
PROVIDERS: PCP Internal Medicine; Referring Provider Internal Medicine; Visit Provider Internal Medicine
DX: E11.65 Type 2 diabetes mellitus with hyperglycemia (principal); I48.0 Paroxysmal atrial fibrillation
CPT/HCPCS: 36415; 80053; 80061; 83036

== ENCOUNTER → 2024-11-21 10:10 | Outpatient (CLI) | payer MEDICARE, OTHER, SELFPAY ==
[2024-11-21 11:12] LABS: Hemoglobin A1C% w Est Avg Glu 8.0 % (4.0-6.0)
[2024-11-21 11:14] LABS: Alanine Aminotransferase 21 IU/L (<50); Albumin 4.6 g/dL (3.5-5.0); Albumin Globulin Ratio 1.5 (1.0-2.8); Alkaline Phosphatase 52 U/L (38-126); Blood Urea Nitrogen 12 mg/dL (9-20); Calcium 9.6 mg/dL (8.4-10.2); Carbon Dioxide 19 mmol/L (22-32); Chloride 102 mmol/L (98-107); Estimated Glomerular Filt Rate > 60 mL/min (>60); Globulin 3.0 g/dL (1.7-4.1); Glucose 185 mg/dL (70-99); HEMOLYSIS 21 (0-50); Potassium 4.0 mmol/L (3.4-5.1); Sodium 137 mmol/L (137-145); Total Protein 7.6 g/dL (6.3-8.2)
== END ==
PROVIDERS: PCP Internal Medicine; Referring Provider Internal Medicine; Visit Provider Internal Medicine
DX: E11.65 Type 2 diabetes mellitus with hyperglycemia (principal); I25.5 Ischemic cardiomyopathy
CPT/HCPCS: 36415; 80053; 83036